=== PATIENT | female | born 1990 | race Caucasian/White ===

== ENCOUNTER 2016-11-02 12:29 | Emergency (ER) | payer SELFPAY ==
[~2016-11-02] VITALS: Ht 152.4 cm; Wt 50.0 kg
[~2016-11-02 12:29] MED LIST: ACET500C5 PO; AMO500 PO; CEPH-443 PO; D-ME118S6 PO; IBUP400T22 PO; IBUP800T25 PO; MECL25TA2 PO; ONDA4TAB8 PO; POLY10DR19 LEFT EYE; PRENAT PO
[2016-11-02 12:33] VITALS: Ht 152.4 cm; Wt 50.0 kg
[2016-11-02 15:35] LABS: ADD SCAN DIFF NO
[2016-11-02 15:41] LABS: BASOPHILS % 0.6 % (0.0-2.0); EOSINOPHILS % 0.6 % (0.0-7.0); HEMOGLOBIN 12.8 g/dl (12.0-16.0); LYMPHOCYTES # 1.8 10^3/ul (0.8-2.9); LYMPHOCYTES % 33.9 % (15.0-51.0); MEAN CORPUSCULAR HEMOGLOBIN 30.8 pg (29.0-33.0); MEAN CORPUSCULAR HGB CONC 32.8 g/dl (32.0-37.0); MEAN CORPUSCULAR VOLUME 93.8 fl (82.0-101.0); MEAN PLATELET VOLUME 10.2 fl (7.4-10.4); MONOCYTE # 0.4 10^3/ul (0.3-0.9); MONOCYTES % 7.9 % (0.0-11.0); NEUTROPHIL # 2.9 10^3/ul (1.6-7.5); NEUTROPHILS % 56.8 % (39.0-77.0); PLATELET COUNT 304 10^3/UL (140-415); RED BLOOD COUNT 4.16 10^6/ul (4.20-5.40); RED CELL DISTRIBUTION WIDTH 13.9 % (11.5-14.5); WHITE BLOOD COUNT 5.2 10^3/ul (4.8-10.8)
[2016-11-02 15:53] LABS: ADD UMIC YES; URINE BILIRUBIN (Dip) NEGATIVE (NEGATIVE); URINE BLOOD (Dip) NEGATIVE (NEGATIVE); URINE COLOR LT. YELLOW (YELLOW); URINE GLUCOSE (Dip) NEGATIVE (NEGATIVE); URINE KETONES (Dip) NEGATIVE (NEGATIVE); URINE LEUKOCYTE ESTERASE (Dip) TRACE (NEGATIVE); URINE NITRITE (Dip) NEGATIVE (NEGATIVE); URINE TOTAL PROTEIN (Dip) NEGATIVE (NEGATIVE); URINE UROBILINOGEN (Dip) 0.2 E.U./dL (0.1-1.0)
[2016-11-02 16:04] LABS: BACTERIA,URINE FEW; SQUAMOUS EPITHELIAL CELL,UR MODERATE; URINE RBCS NONE SEEN /HPF (0)
--- NOTE | 2016-11-02 16:09 | RADRPT ---
PROCEDURE: OBSTETRICAL ULTRASOUND WITH ENDOVAGINAL IMAGES CLINICAL INDICATION: Vaginal Bleed (), pelvic pain TECHNIQUE: Multiple sonographic images of the pelvis were obtained utilizing a transabdominal and endovaginal technique. The images were reviewed on a PACS workstation. COMPARISON: None. LMP: 10/03/2016 Gestational age by LMP: 4 weeks, 2 days FINDINGS: The uterus measures 8.7 x 4.5 x 4.7 cm. There is thickening of the endometrium to 16 mm without libertad dence of an intrauterine . The right ovary measures 4.1 x 2.7 x 3.4 cm. The left ovary measures 3.2 x 2.5 x 3.3 cm. There is no rmal vascular flow in both ovaries. There is a complex cystic lesion with thick grover and heterogeneous internal echoes as well as mild peripheral vascular flow in the left ovary measuring up to 1.8 cm. There is a 3.5 cm simple cystic lesion in the right ovary. There is trace pelvic free fluid. IMPRESSION: Thickening of the endometrium to 16 mm without evidence of an intrauterine . Findings ma y be due to an early intrauterine although an ectopic cannot be entirely exclude d. Short-term follow-up ultrasound and serial Beta HCG measurements are recommended for further kay luation. 1.8 cm complex cystic lesion in the left ovary is likely a hemorrhagic or corpus luteal cyst. 3.5 cm simple cystic lesion in the right ovary is nonspecific and may be an enlarged follicle. RPTAT: EE Physician Carole Date Time Electronically viewed and signed by Oscar Gaines Physician on 11/02/2016 16:08 LOBO
--- NOTE | 2016-11-02 17:12 | ERD ---
ER Documentation Chief Complaint Date/Time DATE: 11/02/16 TIME: 17:06 Chief Complaint WITH PELVIC PAIN HPI This is a 26-year-old female presents to the ER with pelvic pain that started yesterday. Patient states that she is currently and does not know how far along she is. Patient went to [facility] and they did not tell her how many weeks she was. Patient denies any vaginal bleeding. Pain is intermittent and sharp in nature it is nonradiating. A2. Patient denies any urinary frequency or dysuria. She is taking her vitamins. ROS 12 point review of systems was done, all negative except per HPI.. Medications Home Meds Active Scripts Amoxicillin* (Amoxicillin*) 500 Mg Cap, 500 MG PO TID for 10 Days, CAP Prov:BOGDAN YOUNG MD 03/20/16 Dextromethorphan Hb-Promethazine Hcl (Promethazine DM Syrup) 180 Ml Syrup, 5 ML PO Q6H Y for COUGH, #4 OZ Prov:BOGDAN YOUNG MD 03/20/16 Ibuprofen* (Motrin*) 400 Mg Tab, 400 MG PO Q6, #14 TAB Prov:BOGDAN YOUNG MD 03/20/16 Cephalexin* (Keflex*) 500 Mg Capsule, 500 MG PO QID for 7 Days, CAP Prov:SAGE OWEN-Mamie 01/29/16 Meclizine Hcl* (Antivert*) 25 Mg Tablet, 25 MG PO Q6H Y for DIZZINESS, #20 TAB Prov:SAGE OWEN-Mamie 01/29/16 Ondansetron Hcl* (Zofran*) 4 Mg Tablet, 4 MG PO Q6H for NAUSEA AND/OR VOMITING, #30 TAB Prov:PROSAGE IGLESIAS-C 01/29/16 Polymyxin B Sulfate-TMP* (Polymyxin B-TMP Eye Drops*) 10 Ml Drops, 1 DROP LEFT EYE QID for 7 Days, EA Prov:JENNIFFER STODDARD NP 05/10/15 Acetaminophen* (Tylophen*) 500 Mg Capsule, 2 CAP PO Q8H Y for PAIN AND OR ELEVATED TEMP, #20 CAP Prov:SAMUEL DOMINGUEZ MD 9/12/15 Ibuprofen* (Motrin*) 800 Mg Tab, 800 MG PO Q6H Y for PAIN AND OR ELEVATED TEMP, #30 TAB Prov:SAMUEL DOMINGUEZ MD 05/07/15 Reported Medications Multivit/Min/Fol Ac/Iron/Pren* ( S*) 1 Tab Tab, 1 TAB PO DAILY, TAB 03/08/14 Allergies Allergies: Coded Allergies: No Known Allergy (Unverified , 03/20/16) PMhx/Soc Medical and Surgical Hx: pt denies Medical Hx, pt denies Surgical Hx History of Surgery: No Anesthesia Reaction: No Hx Neurological Disorder: No Hx Respiratory Disorders: No Hx Cardiac Disorders: No Hx Psychiatric Problems: No Hx Miscellaneous Medical Probl: No Hx Alcohol Use: No Hx Substance Use: No Hx Tobacco Use: No Smoking Status: Never smoker Physical Exam Vitals Vital Signs Date Time Temp Pulse Resp B/P Pulse Ox O2 Delivery O2 Flow Rate FiO2 11/02/16 12:33 98.1 71 20 117/71 99 Physical Exam GENERAL: The patient is well developed and appropriate for usual state of health , in no apparent distress. HEENT: Atraumatic CHEST: Clear to auscultation bilaterally. There are no rales, wheezes or rhonchi. HEART: Regular rate and rhythm. No murmurs, clicks, rubs or gallops. ABDOMEN: Soft, nontender and nondistended. Good bowel sounds. No rebound or guarding. No gross peritonitis. No gross organomegaly or masses. No Parra sign or McBurney point tenderness. BACK: No midline or flank tenderness. NEURO: Alert and oriented. SKIN: The skin is warm and dry. Result Diagram: 11/02/16 1530 Results 24 hrs Laboratory Tests Test 11/02/16 15:30 11/02/16 15:40 Basophils # 0.010^3/ul Basophils % 0.6% Beta HCG, Quantitative 916.2mIU/ml Eosinophils # 0.010^3/ul Eosinophils % 0.6% Hematocrit 39.0% Hemoglobin 12.8g/dl Lymphocytes # 1.810^3/ul Lymphocytes % 33.9% Mean Corpuscular Hemoglobin 30.8pg Mean Corpuscular Hemoglobin Concent 32.8g/dl Mean Corpuscular Volume 93.8fl Mean Platelet Volume 10.2fl Monocytes # 0.410^3/ul Monocytes % 7.9% Neutrophils # 2.910^3/ul Neutrophils % 56.8% Nucleated Red Blood Cells # 0.010^3/ul Nucleated Red Blood Cells % 0.0/100WBC Platelet Count 93463^3/UL Red Blood Count 4.1610^6/ul Red Cell Distribution Width 13.9% White Blood Count 5.210^3/ul Urine Bacteria FEW Urine Bilirubin NEGATIVE Urine Clarity CLEAR Urine Color LT. YELLOW Urine Glucose NEGATIVE% Urine Hemoglobin NEGATIVE Urine Ketones NEGATIVE Urine Leukocyte Esterase TRACE Urine Microscopic RBC NONE SEEN/HPF Urine Microscopic WBC 2-5/HPF Urine Nitrite NEGATIVE Urine Specific [place] 1.010 Urine Squamous Epithelial Cells MODERATE Urine Total Protein NEGATIVE Urine Urobilinogen 0.2 E.U./dL Urine pH 5.5 Procedures/MDM Differential diagnosis: Threatened , missed , incomplete , ectopic , molar , UTI, pyelonephritis. At this time patient's quantitative hCG is 915 and there is no evidence of intrauterine on ultrasound. This could be because patient's is too early , or an ectopic . Considering patient's hCG is below 1500 suspicion is lower. Patient however need to return to ER in 48 hours for recheck or sooner if pain worsens or continues. I shared my medical decision making with the patient she understands and agrees with plan. She understands and agrees with plan. Departure Diagnosis: Primary Impression: Pelvic pain during Condition: Stable Patient Instructions: Pelvic Pain, Unknown Cause Referrals: QIAN HARRISON Additional Instructions: Call your primary care doctor TOMORROW for an appointment during the next 1-2 days.See the doctor sooner or return here if your condition worsens before your appointment time. ANABELL GUIDO Nov 02, 2016 17:11
== END 2016-11-02 17:08 | disposition home or self-care (01) ==
LOC: FTE 12:29
DX: O26.891 Other specified pregnancy related conditions, first trimester (principal); R10.2 Pelvic and perineal pain; Z3A.01 Less than 8 weeks gestation of pregnancy
CPT/HCPCS: 76801; 76817; 81001; 81003; 84702; 85025; 86900; 86901

== ENCOUNTER 2016-11-04 16:58 | Emergency (ER) | payer SELFPAY ==
[~2016-11-04] VITALS: Wt 51.5 kg
--- NOTE | 2016-11-04 18:35 | RADRPT ---
PROCEDURE: US Pelvis CLINICAL INDICATION: Pelvic pain. TECHNIQUE: Transabdominal and transvaginal sonographic evaluation of the pelvis was performed. COMPARISON: 11/02/2016. FINDINGS: Myometrium is homogeneous in echotexture without fibroids. There is an intrauterine gestational sac measuring 0.3 cm corresponding to a gestational age of 4 we eks 6 days. There is no pole, yolk sac, or cardiac activity. Normal flow to both ovaries. No adnexal mass. There is a simple 3 cm cyst . A corpus luteal cyst within the left ovary is demonstrated. Small free pelvic fluid. MEASUREMENTS: Uterus: 7.7 x 4.8 x 5.2 cm, anteverted Endometrium: 1.7 cm Right ovary size: 3.6 x 3.4 cm Left ovary size: 2.5 x 2.2 cm IMPRESSION: Intrauterine gestational sac of indeterminate viability. The mean gestational sac diameter correspo nds to a gestational age of approximately 4 weeks 6 days. There is no pole, yolk sac, or card iac activity. Recommend correlation with serial serum maternal beta HCG levels and interval sonogra phic follow-up to confirm viability. Simple 3 cm ovarian cyst. Corpus luteal cyst within the left ovary. RPTAT: EE .Camden Venegas MD, MD Date Time Electronically viewed and signed by .Camden Venegas MD, on 11/04/2016 18:35 .C/
--- NOTE | 2016-11-04 19:07 | ERD ---
ER Documentation Chief Complaint Date/Time DATE: 11/04/16 TIME: 19:04 Chief Complaint PT HERE FOR FOLLOW-UP FOR , DENIES PAIN/VB HPI This is a 26-year-old who is here for recheck. The patient was here for pelvic pain for 2 days ago and had a hCG in the 900s with a normal empty uterus. She says her pain is now gone and she never had any bleeding She was told to return to us make sure that sac showed up in her uterus today. She is a symptom ROS All systems reviewed and are negative except as per history of present illness. Medications Home Meds Active Scripts Amoxicillin* (Amoxicillin*) 500 Mg Cap, 500 MG PO TID for 10 Days, CAP Prov:BOGDAN YOUNG MD 03/20/16 Dextromethorphan Hb-Promethazine Hcl (Promethazine DM Syrup) 180 Ml Syrup, 5 ML PO Q6H Y for COUGH, #4 OZ Prov:BOGDAN YOUNG MD 03/20/16 Ibuprofen* (Motrin*) 400 Mg Tab, 400 MG PO Q6, #14 TAB Prov:BOGDAN YOUNG MD 03/20/16 Cephalexin* (Keflex*) 500 Mg Capsule, 500 MG PO QID for 7 Days, CAP Prov:SAGE OWEN PA-C 01/29/16 Meclizine Hcl* (Antivert*) 25 Mg Tablet, 25 MG PO Q6H Y for DIZZINESS, #20 TAB Prov:PROSAGE IGLESIAS-C 01/29/16 Ondansetron Hcl* (Zofran*) 4 Mg Tablet, 4 MG PO Q6H for NAUSEA AND/OR VOMITING, #30 TAB Prov:SAGE OWEN-C 01/29/16 Polymyxin B Sulfate-TMP* (Polymyxin B-TMP Eye Drops*) 10 Ml Drops, 1 DROP LEFT EYE QID for 7 Days, EA Prov:JENNIFFER STODDARD NP 05/10/15 Acetaminophen* (Tylophen*) 500 Mg Capsule, 2 CAP PO Q8H Y for PAIN AND OR ELEVATED TEMP, #20 CAP Prov:SAMUEL DOMINGUEZ MD 05/07/15 Ibuprofen* (Motrin*) 800 Mg Tab, 800 MG PO Q6H Y for PAIN AND OR ELEVATED TEMP, #30 TAB Prov:SAMUEL DOMINGUEZ MD 05/07/15 Reported Medications Multivit/Min/Fol Ac/Iron/Pren* ( S*) 1 Tab Tab, 1 TAB PO DAILY, TAB 03/08/14 Allergies Allergies: Coded Allergies: No Known Allergy (Unverified , 03/20/16) PMhx/Soc Medical and Surgical Hx: pt denies Medical Hx, pt denies Surgical Hx History of Surgery: No Anesthesia Reaction: No Hx Neurological Disorder: No Hx Respiratory Disorders: No Hx Cardiac Disorders: No Hx Psychiatric Problems: No Hx Miscellaneous Medical Probl: No Hx Alcohol Use: No Hx Substance Use: No Hx Tobacco Use: No Smoking Status: Never smoker FmHx Family History: No coronary disease Physical Exam Vitals Vital Signs Date Time Temp Pulse Resp B/P Pulse Ox O2 Delivery O2 Flow Rate FiO2 11/04/16 17:04 99.3 96 17 120/76 97 Physical Exam Const: Well-developed, well-nourished Head: Atraumatic, normocephalic Eyes: Normal Conjunctiva, PERRLA, EOMI, normal sclera, no nystagmus ENT: Normal External Ears, Nose and Mouth, moist mucus membranes. Neck: Full range of motion. No meningismus, no lymphadenopathy. Resp: Clear to auscultation bilaterally, no wheezing, rhonchi, rales Cardio: Regular rate and rhythm, no murmurs, S1 S2 present Abd: Soft, non tender x 4, non distended. Normal bowel sounds, no guarding or rebound, no pulsitile abdominal masses or bruits Skin: No petechiae or rashes, no ecchymosis , no maculopapular rash Back: No midline or flank tenderness Ext: No cyanosis, or edema, FROM x 4, normal inspection, neurovascularly intact x 4 Neur: Awake and alert, STR 5/5 x 4, sensation intact x 4, no focal findings, cerebellum intact Psych: Normal Mood and Affect Results 24 hrs Laboratory Tests Test 11/04/16 17:45 Beta HCG, Quantitative 1794.3mIU/ml Procedures/MDM PROCEDURE: US Pelvis CLINICAL INDICATION: Pelvic pain. TECHNIQUE: Transabdominal and transvaginal sonographic evaluation of the pelvis was performed. COMPARISON: 11/02/2016. FINDINGS: Myometrium is homogeneous in echotexture without fibroids. There is an intrauterine gestational sac measuring 0.3 cm corresponding to a gestational age of 4 weeks 6 days. There is no pole, yolk sac, or cardiac activity. Normal flow to both ovaries. No adnexal mass. There is a simple 3 cm cyst . A corpus luteal cyst within the left ovary is demonstrated. Small free pelvic fluid. MEASUREMENTS: Uterus: 7.7 x 4.8 x 5.2 cm, anteverted Endometrium: 1.7 cm Right ovary size: 3.6 x 3.4 cm Left ovary size: 2.5 x 2.2 cm IMPRESSION: Intrauterine gestational sac of indeterminate viability. The mean gestational sac diameter corresponds to a gestational age of approximately 4 weeks 6 days. There is no pole, yolk sac, or cardiac activity. Recommend correlation with serial serum maternal beta HCG levels and interval sonographic follow-up to confirm viability. Simple 3 cm ovarian cyst. Corpus luteal cyst within the left ovary. RPTAT: EE .Camden Venegas MD, MD Date Time Electronically viewed and signed by .Camden Venegas MD, MD on 11/04/2016 18:35 .C/ CC: ALESSANDRA EWING DO Patient also has gestational sac and hCG is rising according to a normal at this time Departure Diagnosis: Primary Impression: Weeks of gestation: less than 8 weeks Qualified Code: Z3A.01 - Less than 8 weeks gestation of Condition: Stable Patient Instructions: , New Dx Additional Instructions: hcg 1794 ALESSANDRA EWING DO Nov 04, 2016 19:07
== END 2016-11-04 19:14 | disposition home or self-care (01) ==
LOC: FTE 16:58
DX: O26.891 Other specified pregnancy related conditions, first trimester (principal); R10.2 Pelvic and perineal pain; Z3A.01 Less than 8 weeks gestation of pregnancy
CPT/HCPCS: 76801; 76817; 84702

== ENCOUNTER 2016-12-08 12:28 | Emergency (ER) | payer SELFPAY ==
[~2016-12-08] VITALS: Ht 160 cm; Wt 51.0 kg
[2016-12-08 12:33] VITALS: Ht 160 cm; Wt 51.0 kg
[2016-12-08] MEDS ORDERED: ACET325T33 PO (12:56)
--- NOTE | 2016-12-08 13:00 | ERA ---
ER Documentation Chief Complaint Date/Time DATE: 12/08/16 TIME: 12:57 Chief Complaint migraine huitron, dizziness; no n/v; 8wks preg-cramping x 3 days HPI This is a 26-year-old female who is 8 weeks and is complaining of a headache. Patient describes the headache as throbbing behind both eyes and mostly in the forehead. Patient explains as a "bandlike" pressure around the entire head. Pt denies weight loss, fevers, nausea, vomiting, diarrhea, constipation, hyperhidrosis, rigors, fatigue, or dyspnea, malaise. Patient denies bleeding, discharge, hematuria or dysuria. Denies thunderclap headache, worst headache of life, difficulty with vision or hearing. ROS All systems reviewed and are negative except as per history of present illness. Medications Home Meds Active Scripts Acetaminophen* (Tylenol*) 325 Mg Tablet, 1 TAB PO Q8 Y for PAIN AND OR ELEVATED TEMP, #20 TAB Prov:VILMA YI PA-C 12/08/16 Amoxicillin* (Amoxicillin*) 500 Mg Cap, 500 MG PO TID for 10 Days, CAP Prov:BOGDAN YOUNG MD 03/20/16 Dextromethorphan Hb-Promethazine Hcl (Promethazine DM Syrup) 180 Ml Syrup, 5 ML PO Q6H Y for COUGH, #4 OZ Prov:BOGDAN YOUNG MD 03/20/16 Ibuprofen* (Motrin*) 400 Mg Tab, 400 MG PO Q6, #14 TAB Prov:BOGDAN YOUNG MD 03/20/16 Cephalexin* (Keflex*) 500 Mg Capsule, 500 MG PO QID for 7 Days, CAP Prov:SAGE OWEN PA-C 01/29/16 Meclizine Hcl* (Antivert*) 25 Mg Tablet, 25 MG PO Q6H Y for DIZZINESS, #20 TAB Prov:SAGE OWEN PA-C 01/29/16 Ondansetron Hcl* (Zofran*) 4 Mg Tablet, 4 MG PO Q6H for NAUSEA AND/OR VOMITING, #30 TAB Prov:SAGE OWEN PA-C 01/29/16 Polymyxin B Sulfate-TMP* (Polymyxin B-TMP Eye Drops*) 10 Ml Drops, 1 DROP LEFT EYE QID for 7 Days, EA Prov:JENNIFFER STODDARD NP 05/10/15 Acetaminophen* (Tylophen*) 500 Mg Capsule, 2 CAP PO Q8H Y for PAIN AND OR ELEVATED TEMP, #20 CAP Prov:SAMUEL DOMINGUEZ MD 05/07/15 Ibuprofen* (Motrin*) 800 Mg Tab, 800 MG PO Q6H Y for PAIN AND OR ELEVATED TEMP, #30 TAB Prov:SAMUEL DOMINGUEZ MD 05/07/15 Reported Medications Multivit/Min/Fol Ac/Iron/Pren* ( S*) 1 Tab Tab, 1 TAB PO DAILY, TAB 03/08/14 Allergies Allergies: Coded Allergies: No Known Allergy (Unverified , 03/20/16) PMhx/Soc History of Surgery: No Anesthesia Reaction: No Hx Neurological Disorder: No Hx Respiratory Disorders: No Hx Cardiac Disorders: No Hx Psychiatric Problems: No Hx Miscellaneous Medical Probl: No Hx Alcohol Use: No Hx Substance Use: No Hx Tobacco Use: No Physical Exam Vitals Vital Signs Date Time Temp Pulse Resp B/P Pulse Ox O2 Delivery O2 Flow Rate FiO2 12/08/16 12:33 97.9 94 18 124/68 98 Physical Exam Const: Well-appearing 26-year-old female who is 8 weeks . Head: Atraumatic Eyes: Normal Conjunctiva ENT: Normal External Ears, Nose and Mouth. Neck: Full range of motion..~ No meningismus. Resp: Clear to auscultation bilaterally Cardio: Regular rate and rhythm, no murmurs Abd: Soft, non tender, non distended. Normal bowel sounds. No abdominal pain. Skin: No petechiae or rashes Back: No midline or flank tenderness Ext: No cyanosis, or edema Neur: Awake and alert Psych: Normal Mood and Affect BLOW OFF WORKER exam deferred. I told the patient to follow-up with DREDGEM[facility] in the next 1-3 days. Results 24 hrs Laboratory Tests Test 12/08/16 13:03 Bedside Urine pH (LAB) 7.0 Bedside Urine Protein (LAB) Negative Bedside Urine Glucose (UA) Negative Bedside Urine Ketones (LAB) Negative Bedside Urine Blood Negative Bedside Urine Nitrite (LAB) Negative Bedside Urine Leukocyte Esterase (L 1+ Current Medications Medications (Trade) Dose Ordered Sig/Marino Route PRN Reason Start Time Stop Time Status Last Admin Dose Admin Acetaminophen (Tylenol Tab) 325 mg ONCE ONCE PO 12/08/16 14:00 12/08/16 14:00 DC 12/08/16 13:36 Procedures/MDM BLOW OFF WORKER exam deferred to have advised patient to follow-up with DREDGEMASTER in 1-3 days. Went ahead and got a urine on the patient to rule out any infectious pathology of the urinary tract. The urine was unremarkable. The physical exam was also unremarkable. At this time I do not suspect any endangerment of the fetus as there is no bleeding or pain. Patient has no other complaints besides the tension type headache described in the HPI. We will go ahead and discharge the patient with Tylenol for discomfort. Have recommended the patient follow-up with her DREDGEMASTER in the next 1-3 days for a further evaluation/recommendation for headache control. Have told the patient if the headache worsens or changes return to the emergency department immediately. Departure Diagnosis: Primary Impression: Tension type headache Qualified Code: G44.201 - Acute intractable tension-type headache Condition: Stable Patient Instructions: Headache, Tension Additional Instructions: Follow up with your PCP within the next 1-3 days for a more thorough evaluation and a possible referral to a specialist. Return the the emergency department immediately if symptoms worsen or change. If you have any questions regarding medications, ask your pharmacist or us before you leave. If any adverse reactions occur while taking your medications, discontinue the treatment and return to the emergency department immediately. Take your medications as directed, and complete the entire course of treatment. VILMA YI PA-C Dec 08, 2016 13:00
[2016-12-08 13:03] LABS: URINE BLOOD (Dip) POC Negative (NEGATIVE)
[2016-12-08] MEDS ORDERED: ACETAMINOPHEN 325 MG TAB PO ONE (14:00)
== END 2016-12-08 13:45 | disposition home or self-care (01) ==
LOC: FTE 12:28
DX: O99.351 Diseases of the nervous system complicating pregnancy, first trimester (principal); G44.201 Tension-type headache, unspecified, intractable; Z3A.08 8 weeks gestation of pregnancy
CPT/HCPCS: 81003; 99283

== ENCOUNTER 2016-12-10 11:32 | Emergency (ER) | payer SELFPAY ==
[~2016-12-10] VITALS: Ht 157.5 cm; Wt 50.0 kg
[~2016-12-10 11:32] MED LIST changes: +ACET325T33 PO
[2016-12-10 11:38] VITALS: Ht 157.5 cm; Wt 50.0 kg
[2016-12-10] MEDS ORDERED: ACETAMINOPHEN 325 MG TAB PO STA (12:44)
[2016-12-10 12:58] LABS: ADD SCAN DIFF NO
[2016-12-10 13:01] LABS: BASOPHILS % 0.3 % (0.0-2.0); EOSINOPHILS % 0.3 % (0.0-7.0); HEMATOCRIT 37.3 % (37.0-47.0); HEMOGLOBIN 12.2 g/dl (12.0-16.0); LYMPHOCYTES # 1.5 10^3/ul (0.8-2.9); LYMPHOCYTES % 15.7 % (15.0-51.0); MEAN CORPUSCULAR HEMOGLOBIN 30.1 pg (29.0-33.0); MEAN CORPUSCULAR HGB CONC 32.7 g/dl (32.0-37.0); MEAN CORPUSCULAR VOLUME 92.1 fl (82.0-101.0); MEAN PLATELET VOLUME 10.4 fl (7.4-10.4); MONOCYTE # 0.5 10^3/ul (0.3-0.9); MONOCYTES % 5.5 % (0.0-11.0); NEUTROPHIL # 7.6 10^3/ul (1.6-7.5); NEUTROPHILS % 77.9 % (39.0-77.0); PLATELET COUNT 301 10^3/UL (140-415); RED BLOOD COUNT 4.05 10^6/ul (4.20-5.40); RED CELL DISTRIBUTION WIDTH 12.9 % (11.5-14.5); WHITE BLOOD COUNT 9.8 10^3/ul (4.8-10.8)
[2016-12-10 13:12] LABS: ADD UMIC YES; URINE BILIRUBIN (Dip) NEGATIVE (NEGATIVE); URINE BLOOD (Dip) 2+ (NEGATIVE); URINE COLOR LT. YELLOW (YELLOW); URINE GLUCOSE (Dip) NEGATIVE (NEGATIVE); URINE KETONES (Dip) TRACE (NEGATIVE); URINE LEUKOCYTE ESTERASE (Dip) 2+ (NEGATIVE); URINE NITRITE (Dip) NEGATIVE (NEGATIVE); URINE TOTAL PROTEIN (Dip) TRACE (NEGATIVE); URINE UROBILINOGEN (Dip) 0.2 E.U./dL (0.1-1.0)
[2016-12-10 13:25] LABS: BACTERIA,URINE FEW; SQUAMOUS EPITHELIAL CELL,UR FEW
--- NOTE | 2016-12-10 13:47 | RADRPT ---
PROCEDURE: US OB. CLINICAL INDICATION: Vaginal bleeding TECHNIQUE: Transabdominal and transvaginal views of the pelvis are available for review. COMPARISON: 11/04/2016 FINDINGS: There is a single intrauterine gestation with the crown-rump length measuring 3.0 cm, corresponding to a gestational age of 9 weeks and 6 days. The heart rate is noted at 179 bpm. The right ovary was not visualized. The left ovary measures 3.0 x 1.7 x 2.3 cm. There is a corpus luteum cyst in the left ovary. There is no free fluid. RPTAT: AA IMPRESSION: Single live intrauterine with an estimated gestational age of 9 weeks and 6 days, based on ultrasound measurements. TREASURE based on ultrasound measurements is 07/09/17. .Delgado Cagle MD, Date Time Electronically viewed and signed by .Delgado Cagle MD, on 12/10/2016 13:47 .S/
[2016-12-10] MEDS ORDERED: NITR-58 PO (14:16)
--- NOTE | 2016-12-10 14:42 | ERD ---
ER Documentation Chief Complaint Date/Time DATE: 12/10/16 TIME: 14:38 Chief Complaint 8 WEEKS PREGNAT WITH SPOTTING HPI This is a 26-year-old female presents to the ER for vaginal spotting that started today. Patient states she is currently 8 weeks . She does admit to cough and cold symptoms with stuffy nose. Patient also has a headache. She also admits to urinary frequency and dysuria. Patient denies any vaginal discharge. She does admit to some mild suprapubic pain. A2. ROS 12 point review of systems was done, all negative except per HPI. Medications Home Meds Active Scripts Nitrofurantoin Monohyd Macrocr* (Macrobid*) 100 Mg Capsr, 100 MG PO BID for 7 Days, CAP Prov:ANABELL GUIDO 12/10/16 Acetaminophen* (Tylenol*) 325 Mg Tablet, 1 TAB PO Q8 Y for PAIN AND OR ELEVATED TEMP, #20 TAB Prov:VILMA YI PA-C 12/08/16 Amoxicillin* (Amoxicillin*) 500 Mg Cap, 500 MG PO TID for 10 Days, CAP Prov:BOGDAN YOUNG MD 03/20/16 Dextromethorphan Hb-Promethazine Hcl (Promethazine DM Syrup) 180 Ml Syrup, 5 ML PO Q6H Y for COUGH, #4 OZ Prov:BOGDAN YOUNG MD 03/20/16 Ibuprofen* (Motrin*) 400 Mg Tab, 400 MG PO Q6, #14 TAB Prov:BOGDAN YOUNG MD 03/20/16 Cephalexin* (Keflex*) 500 Mg Capsule, 500 MG PO QID for 7 Days, CAP Prov:SAGE OWEN PA-C 01/29/16 Meclizine Hcl* (Antivert*) 25 Mg Tablet, 25 MG PO Q6H Y for DIZZINESS, #20 TAB Prov:SAGE OWEN PA-C 01/29/16 Ondansetron Hcl* (Zofran*) 4 Mg Tablet, 4 MG PO Q6H for NAUSEA AND/OR VOMITING, #30 TAB Prov:SAGE OWEN PA-C 01/29/16 Polymyxin B Sulfate-TMP* (Polymyxin B-TMP Eye Drops*) 10 Ml Drops, 1 DROP LEFT EYE QID for 7 Days, EA Prov:JENNIFFER STODDARD EDWARD MonieMorena ORO 05/10/15 Acetaminophen* (Tylophen*) 500 Mg Capsule, 2 CAP PO Q8H Y for PAIN AND OR ELEVATED TEMP, #20 CAP Prov:SAMUEL DOMINGUEZ MD 05/07/15 Ibuprofen* (Motrin*) 800 Mg Tab, 800 MG PO Q6H Y for PAIN AND OR ELEVATED TEMP, #30 TAB Prov:SAMUEL DOMINGUEZ MD 05/07/15 Reported Medications Multivit/Min/Fol Ac/Iron/Pren* ( S*) 1 Tab Tab, 1 TAB PO DAILY, TAB 03/08/14 Allergies Allergies: Coded Allergies: No Known Allergy (Unverified , 12/10/16) PMhx/Soc Medical and Surgical Hx: pt denies Medical Hx, pt denies Surgical Hx History of Surgery: No Anesthesia Reaction: No Hx Neurological Disorder: No Hx Respiratory Disorders: No Hx Cardiac Disorders: No Hx Psychiatric Problems: No Hx Miscellaneous Medical Probl: No Hx Alcohol Use: No Hx Substance Use: No Hx Tobacco Use: No Smoking Status: Never smoker Physical Exam Vitals Vital Signs Date Time Temp Pulse Resp B/P Pulse Ox O2 Delivery O2 Flow Rate FiO2 12/10/16 11:38 98.5 76 20 121/76 99 Physical Exam GENERAL: The patient is well developed and appropriate for usual state of health , in no apparent distress. HEENT: Atraumatic. . CHEST: Clear to auscultation bilaterally. There are no rales, wheezes or rhonchi. HEART: Regular rate and rhythm. No murmurs, clicks, rubs or gallops. ABDOMEN: Soft, nontender and nondistended. Good bowel sounds. No rebound or guarding. No gross peritonitis. No gross organomegaly or masses. No Parra sign or McBurney point tenderness. BACK: No midline or flank tenderness. NEURO: Alert and oriented. SKIN: There is no apparent rash or petechia. The skin is warm and dry. Result Diagram: 12/10/16 1252 Results 24 hrs Laboratory Tests Test 12/10/16 12:52 12/10/16 12:55 White Blood Count 9.810^3/ul Red Blood Count 4.0510^6/ul Hemoglobin 12.2g/dl Hematocrit 37.3% Mean Corpuscular Volume 92.1fl Mean Corpuscular Hemoglobin 30.1pg Mean Corpuscular Hemoglobin Concent 32.7g/dl Red Cell Distribution Width 12.9% Platelet Count 46500^3/UL Mean Platelet Volume 10.4fl Neutrophils % 77.9% Lymphocytes % 15.7% Monocytes % 5.5% Eosinophils % 0.3% Basophils % 0.3% Nucleated Red Blood Cells % 0.0/100WBC Neutrophils # 7.610^3/ul Lymphocytes # 1.510^3/ul Monocytes # 0.510^3/ul Eosinophils # 0.010^3/ul Basophils # 0.010^3/ul Nucleated Red Blood Cells # 0.010^3/ul Beta HCG, Quantitative 468432.0mIU/ml Urine Color LT. YELLOW Urine Clarity SLIGHTLY CLOUDY Urine pH 6.0 Urine Specific Robinson 1.020 Urine Ketones TRACE Urine Nitrite NEGATIVE Urine Bilirubin NEGATIVE Urine Urobilinogen 0.2 E.U./dL Urine Leukocyte Esterase 2+ Urine Microscopic RBC 10-25/HPF Urine Microscopic WBC >50/HPF Urine Squamous Epithelial Cells FEW Urine Bacteria FEW Urine Hemoglobin 2+ Urine Glucose NEGATIVE% Urine Total Protein TRACE Current Medications Medications (Trade) Dose Ordered Sig/Marino Route PRN Reason Start Time Stop Time Status Last Admin Dose Admin Acetaminophen (Tylenol Tab) 650 mg ONCE STAT PO 12/10/16 12:44 12/10/16 12:45 DC 12/10/16 13:00 Procedures/MDM Differential diagnosis: Threatened , missed , incomplete , ectopic , molar , UTI, pyelonephritis. This time patient's appears to be normal. Her quantitative hCG is within normal limits and her ultrasound is normal. Patient is Rh+ and does not need Rhogam. Even though everything is normal, threatened is not completely ruled out as patient is bleeding vaginally. Patient does have a UTI. She will be sent home with Macrobid. Patient really needs to follow-up within 48 hours with OB. I shared my medical decision making with the patient she understands and agrees with plan. Patient is to return to ER sooner if symptoms worsen. Departure Diagnosis: Primary Impression: UTI (urinary tract infection) Condition: Stable Patient Instructions: Understanding Urinary Tract Infections (UTIs) Additional Instructions: Call your primary care doctor TOMORROW for an appointment during the next 1-2 days.See the doctor sooner or return here if your condition worsens before your appointment time. ANABELL GUIDO Dec 10, 2016 14:42
[2016-12-10 15:19] VITALS: BP 127/73; PULSE 81; RESP 17; TEMP 98.5
== END 2016-12-10 15:21 | disposition home or self-care (01) ==
LOC: FTE 11:32
DX: O23.41 Unspecified infection of urinary tract in pregnancy, first trimester (principal); Z3A.09 9 weeks gestation of pregnancy
CPT/HCPCS: 76801; 81001; 81003; 84702; 85025; 86900; 86901

== ENCOUNTER 2017-01-21 16:18 | Emergency (ER) | payer MEDICAID ==
[~2017-01-21] VITALS: Ht 152.4 cm; Wt 50.0 kg
[~2017-01-21 16:18] MED LIST changes: +NITR-58 PO
[2017-01-21 16:21] VITALS: Ht 152.4 cm; Wt 50.0 kg
[2017-01-21] MEDS ORDERED: ACET500C5 PO (16:52)
--- NOTE | 2017-01-21 16:58 | ERD ---
ER Documentation Chief Complaint Date/Time DATE: 01/21/17 TIME: 16:54 Chief Complaint Patient complains of back pain after a fall yesterday HPI Patient is a 26-year-old female, , approximately 16 weeks , who presents to the emergency department with lower back pain status post ground-level fall. Patient reports a trip and fall injury. Patient denies any dizziness or presyncopal feelings prior to fall. Patient states the pain is localized to her left lower back. Patient does report some radiation of pain down her left leg. Patient denies any saddle anesthesia, urinary incontinence, stool incontinence, fever, chills or night pain. Patient denies taking any medication. Patient denies any dysuria, frequency, urgency, or hematuria. Patient denies any previous spinal fractures. She is able to evaluate without any difficulty. ROS All systems reviewed and are negative except as per history of present illness. Medications Home Meds Active Scripts Acetaminophen* (Tylophen*) 500 Mg Capsule, 1 CAP PO Q6H Y for PAIN AND OR ELEVATED TEMP, #20 CAP Prov:SHERIF GAY PA-C 01/21/17 Nitrofurantoin Monohyd Macrocr* (Macrobid*) 100 Mg Capsr, 100 MG PO BID for 7 Days, CAP Prov:ANABELL GUIDO 12/10/16 Acetaminophen* (Tylenol*) 325 Mg Tablet, 1 TAB PO Q8 Y for PAIN AND OR ELEVATED TEMP, #20 TAB Prov:VILMA YI PA-C 12/08/16 Amoxicillin* (Amoxicillin*) 500 Mg Cap, 500 MG PO TID for 10 Days, CAP Prov:BOGDAN YOUNG MD 03/20/16 Dextromethorphan Hb-Promethazine Hcl (Promethazine DM Syrup) 180 Ml Syrup, 5 ML PO Q6H Y for COUGH, #4 OZ Prov:BOGDAN YOUNG MD 03/20/16 Ibuprofen* (Motrin*) 400 Mg Tab, 400 MG PO Q6, #14 TAB Prov:BOGDAN YOUNG MD 03/20/16 Cephalexin* (Keflex*) 500 Mg Capsule, 500 MG PO QID for 7 Days, CAP Prov:SAGE OWENC 01/29/16 Meclizine Hcl* (Antivert*) 25 Mg Tablet, 25 MG PO Q6H Y for DIZZINESS, #20 TAB Prov:SAGE OWEN PA-C 01/29/16 Ondansetron Hcl* (Zofran*) 4 Mg Tablet, 4 MG PO Q6H for NAUSEA AND/OR VOMITING, #30 TAB Prov:SAGE OWEN PA-C 01/29/16 Polymyxin B Sulfate-TMP* (Polymyxin B-TMP Eye Drops*) 10 Ml Drops, 1 DROP LEFT EYE QID for 7 Days, EA Prov:JENNIFFER STODDARD NP 05/10/15 Acetaminophen* (Tylophen*) 500 Mg Capsule, 2 CAP PO Q8H Y for PAIN AND OR ELEVATED TEMP, #20 CAP Prov:SAMUEL DOMINGUEZ MD 05/07/15 Ibuprofen* (Motrin*) 800 Mg Tab, 800 MG PO Q6H Y for PAIN AND OR ELEVATED TEMP, #30 TAB Prov:SAMUEL DOMINGUEZ MD 05/07/15 Reported Medications Multivit/Min/Fol Ac/Iron/Pren* ( S*) 1 Tab Tab, 1 TAB PO DAILY, TAB 03/08/14 Allergies Allergies: Coded Allergies: No Known Allergy (Unverified , 12/10/16) PMhx/Soc History of Surgery: No Anesthesia Reaction: No Hx Neurological Disorder: No Hx Respiratory Disorders: No Hx Cardiac Disorders: No Hx Psychiatric Problems: No Hx Miscellaneous Medical Probl: No Hx Alcohol Use: No Hx Substance Use: No Hx Tobacco Use: No Physical Exam Vitals Vital Signs Date Time Temp Pulse Resp B/P Pulse Ox O2 Delivery O2 Flow Rate FiO2 01/21/17 16:21 99.0 96 20 113/60 98 Physical Exam GENERAL: Well-developed, well-nourished female. Appears in no acute distress. HEAD: Normocephalic, atraumatic. EYES: Pupils are equally reactive bilaterally. EOMs grossly intact. No conjunctival erythema. ENT: Moist mucous membranes. No uvula deviation. No kissing tonsils. NECK: Supple. No meningismus. Normal range of motion of the neck. LUNG: Clear to auscultation bilaterally. No rhonchi, wheezing, rales or coarse breath sounds. HEART: Regular rate and rhythm. No murmurs, rubs or gallops. ABDOMEN: Gravid abdomen. Soft, nontender, and nondistended. Positive bowel sounds in all four quadrants. No rebound tenderness, no guarding. (-) McBurney' s point tenderness. No CVA tenderness. BACK: No midline tenderness. Tender to palpation of the left lumbar paraspinous muscles. Positive straight leg raise on the left side. EXTREMITIES: Equal pulses bilaterally. No peripheral clubbing, cyanosis or edema. No unilateral leg swelling. NEUROLOGIC: Alert and oriented. Moving all four extremities without any difficulty. Normal speech. Steady gait. SKIN: Normal color. Warm and dry. No rashes or lesions. Procedures/MDM ED COURSE: The patient was stable throughout ED course. I kept the patient and/or family informed of laboratory and diagnostic imaging results throughout the ED course. DIAGNOSTIC IMAGING: Read by radiologist. DIAGNOSTIC IMAGING REPORT Patient: NARDA RUIZ : 1990 Age: 26 Sex: F MR #: [id number] DOS: 01/21/17 1640 Ordering MD: SHERIF GAY PA-C Location: [facility] Room/Bed: PROCEDURE: US OB. CLINICAL INDICATION: Size and dates TECHNIQUE: Multiple sonographic images of the pelvis and gravid uterus were obtained. The images were reviewed on a PACS workstation. COMPARISON: 12/10 FINDINGS: There is a single viable intrauterine gestation. Cardiac activity is present with 152 beats per minute. There is a vertex presentation. The placenta is anterior. There is no evidence for an abruption or placenta previa. There is a normal amount of amniotic fluid with a MVP = 3.6 cm. Measurements were made in order to determine age. The results are as follows: BPD = 3.5 cm HC = 12.9 cm AC = 11.2 cm FL = 2.2 cm Estimated gestational age of approximately 16 weeks and 5 days based on ultrasound measurements. Clinical age: 16 weeks and 0 days. The estimated date of delivery is 07/03/17, based on ultrasound measurements. The EFW = 168 g, 89%, based on LMP age. The ovaries were not visualized. The adnexa are normal. RPTAT: AA IMPRESSION: Single viable intrauterine gestation of approximately 16 weeks and 5 days based on ultrasound measurements. .Delgado Cagle MD, Date Time Electronically viewed and signed by .Delgado Cagle MD, MD on 01/21/2017 17: 36 .S/ CC: SHERIF GAY PA-C MEDICATIONS GIVEN: She was offered Tylenol for pain relief however she declined. MEDICAL DECISION MAKING: This is a 26-year-old female, G3, P1, who presents emergency department with lower back pain status post ground-level fall.. Vital signs were reviewed. Patient was afebrile. Patient denied any saddle anesthesia, urinary incontinence, bowel incontinence, night pain. Given the patient is , x-ray imaging was not obtained at this time. Patient understands that I am unable to rule out any fractures this time given . Pelvic ultrasound showed Single viable intrauterine gestation of approximately 16 weeks and 5 days based on ultrasound measurements..Given these findings, the patient's presentation is most consistent with lumbar strain versus sciatica. I have a much lower clinical concern for cauda equine syndrome, spinal metastases , osteomyelitis, DJD, pyelonephritis or nephrolithiasis. Low suspicion for demise. PRESCRIPTIONS: Tylenol DISCHARGE: At this time, patient is stable for discharge and outpatient management. Patient provided with a copy of all imaging studies obtained today. RICE therapy and ROM exercises were advised to avoid stiffness. I have instructed the patient to follow-up with his/her primary care physician/OBGYN in 1-2 days. I have discussed with the patient the possibility of needing to see an personal security specialist for further workup and imaging if the pain persists. I have instructed the patient to promptly return to the ER for any new or worsening symptoms including increased pain, swelling, warmth, urinary incontinence, stool incontinence, weakness or numbness. The patient and/or family expressed understanding of and agreement with this plan. All questions were answered. Home care instructions were provided. Departure Diagnosis: Primary Impression: Back pain Back pain location: back pain in unspecified location Chronicity: acute Back pain laterality: left Qualified Code: M54.9 - Acute left-sided back pain , unspecified back location Additional Impression: Weeks of gestation: unspecified Qualified Code: Z33.1 - , unspecified gestational age Condition: Stable Patient Instructions: Back Pain (Acute Or Chronic) Referrals: [facility] YOU HAVE RECEIVED A MEDICAL SCREENING EXAM AND THE RESULTS INDICATE THAT YOU DO NOT HAVE A CONDITION THAT REQUIRES URGENT TREATMENT IN THE EMERGENCY DEPARTMENT. FURTHER EVALUATION AND TREATMENT OF YOUR CONDITION CAN WAIT UNTIL YOU ARE SEEN IN YOUR DOCTORS OFFICE WITHIN THE NEXT 1-2 DAYS. IT IS YOUR RESPONSIBILITY TO MAKE AN APPOINTMENT FOR FOLOW-UP CARE. IF YOU HAVE A PRIMARY DOCTOR --you should call your primary doctor and schedule an appointment IF YOU DO NOT HAVE A PRIMARY DOCTOR YOU CAN CALL OUR PHYSICIAN REFERRAL HOTLINE AT IF YOU CAN NOT AFFORD TO SEE A PHYSICIAN YOU CAN CHOSE FROM THE FOLLOWING [facility] [address] [facility] [address] [facility] [facility] [address] [facility] [address] [facility] [address] [facility]. [facility] [address] [facility] [facility] YOU HAVE RECEIVED A MEDICAL SCREENING EXAM AND THE RESULTS INDICATE THAT YOU DO NOT HAVE A CONDITION THAT REQUIRES URGENT TREATMENT IN THE EMERGENCY DEPARTMENT. FURTHER EVALUATION AND TREATMENT OF YOUR CONDITION CAN WAIT UNTIL YOU ARE SEEN IN YOUR DOCTORS OFFICE WITHIN THE NEXT 1-2 DAYS. IT IS YOUR RESPONSIBILITY TO MAKE AN APPOINTMENT FOR FOLOW-UP CARE. IF YOU HAVE A PRIMARY DOCTOR --you should call your primary doctor and schedule and appointment IF YOU DO NOT HAVE A PRIMARY DOCTOR YOU CAN CALL OUR PHYSICIAN REFERRAL HOTLINE AT . IF YOU CAN NOT AFFORD TO SEE A PHYSICIAN YOU CAN CHOSE FROM THE FOLLOWING [facility]: [facility] [address] [place] [address] [facility] [address] [place] [address] [facility] [address] [place] [address] [employer] [address] [facility] [address] [place] [address] OFFICE FAX , [facility] [address] [place] [address] [address] MELLO, [place] [address] [place] [address] [address] AVILA, [facility] [address], [address], [facility] [address] [address] RICE, [facility] [address] [place] [address] [facility] [address] [place] [address] [phone] [address] [facility] [address] - [address] CAGLE, [facility] [address], [facility] [address] [address] [place], [place] [address] [facility]. [address], [facility] [address] [address] REEVES, [facility] [address] [place], [place] [id number] Additional Instructions: Call your primary care doctor/OBGYN TOMORROW for an appointment during the next 1-2 days.See the doctor sooner or return here if your condition worsens before your appointment time. Unable to rule out any fractures, ligament or tendon injuries. At this time. Follow-up with your primary is physician and/or BENCH EXAMINER if her pain persists. SHERIF GAY PA-C January 21, 2017 16:58 SHERIF GAY PA-C January 21, 2017 16:58
--- NOTE | 2017-01-21 17:36 | RADRPT ---
PROCEDURE: US OB. CLINICAL INDICATION: Size and dates TECHNIQUE: Multiple sonographic images of the pelvis and gravid uterus were obtained. The images were reviewed on a PACS workstation. COMPARISON: 12/10 FINDINGS: There is a single viable intrauterine gestation. Cardiac activity is present with 152 beats per mi nute. There is a vertex presentation. The placenta is anterior. There is no evidence for an abruption or placenta previa. There is a normal amount of amniotic fluid with a MVP = 3.6 cm. Measurements were made in order to determine age. The results are as follows: BPD =3.5 cm HC =12.9 cm AC =11.2 cm FL =2.2 cm Estimated gestational age of approximately 16 weeks and 5 days based on ultrasound measurements. Clinical age: 16 weeks and 0 days. The estimated date of delivery is 07/03/17, based on ultrasound measurements. The EFW = 168 g, 89%, based on LMP age. The ovaries were not visualized. The adnexa are normal. RPTAT: AA IMPRESSION: Single viable intrauterine gestation of approximately 16 weeks and 5 days based on ultrasound measu rements. .Delgado Cagle MD, Date Time Electronically viewed and signed by .Delgado Cagle MD, MD on 01/21/2017 17:36 .S/
== END 2017-01-21 18:24 | disposition home or self-care (01) ==
LOC: FTE 16:18
DX: O99.89 Other specified diseases and conditions complicating pregnancy, childbirth and the puerperium (principal); M54.5 Low back pain; Z3A.16 16 weeks gestation of pregnancy
CPT/HCPCS: 76805; Z7502

== ENCOUNTER 2017-02-11 14:20 | Emergency (ER) | payer MEDICAID ==
[~2017-02-11] VITALS: Ht 160 cm; Wt 51.0 kg
[2017-02-11 14:24] VITALS: Ht 160 cm; Wt 51.0 kg
[2017-02-11 15:52] LABS: ADD SCAN DIFF NO
[2017-02-11 15:56] LABS: BASOPHILS % 0.3 % (0.0-2.0); EOSINOPHILS % 0.5 % (0.0-7.0); HEMATOCRIT 32.7 % (37.0-47.0); LYMPHOCYTES # 1.6 10^3/ul (0.8-2.9); LYMPHOCYTES % 21.7 % (15.0-51.0); MEAN CORPUSCULAR HEMOGLOBIN 30.9 pg (29.0-33.0); MEAN CORPUSCULAR HGB CONC 33.6 g/dl (32.0-37.0); MEAN CORPUSCULAR VOLUME 91.9 fl (82.0-101.0); MEAN PLATELET VOLUME 10.8 fl (7.4-10.4); MONOCYTE # 0.4 10^3/ul (0.3-0.9); MONOCYTES % 5.2 % (0.0-11.0); NEUTROPHIL # 5.4 10^3/ul (1.6-7.5); NEUTROPHILS % 71.9 % (39.0-77.0); PLATELET COUNT 256 10^3/UL (140-415); RED BLOOD COUNT 3.56 10^6/ul (4.20-5.40); RED CELL DISTRIBUTION WIDTH 13.8 % (11.5-14.5); WHITE BLOOD COUNT 7.5 10^3/ul (4.8-10.8)
[2017-02-11 15:57] LABS: ADD UMIC YES; UR BILIRUBIN (Dip) NEGATIVE (NEGATIVE); UR BLOOD (Dip) TRACE (NEGATIVE); UR CLARITY CLEAR (CLEAR); UR COLOR LT. YELLOW (YELLOW); UR GLUCOSE (Dip) NEGATIVE (NEGATIVE); UR KETONES (Dip) 40 (NEGATIVE); UR LEUKOCYTE ESTERASE (Dip) 1+ (NEGATIVE); UR NITRITE (Dip) NEGATIVE (NEGATIVE); UR TOTAL PROTEIN (Dip) NEGATIVE (NEGATIVE); UR UROBILINOGEN (Dip) 0.2 E.U./dL (0.1-1.0)
[2017-02-11 16:10] LABS: UR SQUAMOUS EPITHELIAL CELL MODERATE; URINE RBCS 0-2 /HPF (0)
--- NOTE | 2017-02-11 16:22 | ERA ---
ER Documentation Chief Complaint Date/Time DATE: 02/11/17 TIME: 16:21 Chief Complaint 18 WEEKS , HEAVY VAGINAL BLEEDING SINCE HPI This is an otherwise healthy 26-year-old female who is 18 weeks . Female is . ROS All systems reviewed and are negative except as per history of present illness. Medications Home Meds Active Scripts Acetaminophen* (Tylophen*) 500 Mg Capsule, 1 CAP PO Q6H Y for PAIN AND OR ELEVATED TEMP, #20 CAP Prov:SHERIF GAY PA-C 01/21/17 Nitrofurantoin Monohyd Macrocr* (Macrobid*) 100 Mg Capsr, 100 MG PO BID for 7 Days, CAP Prov:ANABELL GUIDO 12/10/16 Acetaminophen* (Tylenol*) 325 Mg Tablet, 1 TAB PO Q8 Y for PAIN AND OR ELEVATED TEMP, #20 TAB Prov:VILMA YI PA-C 12/08/16 Amoxicillin* (Amoxicillin*) 500 Mg Cap, 500 MG PO TID for 10 Days, CAP Prov:BOGDAN YOUNG MD 03/20/16 Dextromethorphan Hb-Promethazine Hcl (Promethazine DM Syrup) 180 Ml Syrup, 5 ML PO Q6H Y for COUGH, #4 OZ Prov:BOGDAN YOUNG MD 03/20/16 Ibuprofen* (Motrin*) 400 Mg Tab, 400 MG PO Q6, #14 TAB Prov:BOGDAN YOUNG MD 03/20/16 Cephalexin* (Keflex*) 500 Mg Capsule, 500 MG PO QID for 7 Days, CAP Prov:SAGE OWEN PA-C 01/29/16 Meclizine Hcl* (Antivert*) 25 Mg Tablet, 25 MG PO Q6H Y for DIZZINESS, #20 TAB Prov:SAGE OWEN PA-C 01/29/16 Ondansetron Hcl* (Zofran*) 4 Mg Tablet, 4 MG PO Q6H for NAUSEA AND/OR VOMITING, #30 TAB Prov:SAGE OWEN PA-C 01/29/16 Polymyxin B Sulfate-TMP* (Polymyxin B-TMP Eye Drops*) 10 Ml Drops, 1 DROP LEFT EYE QID for 7 Days, EA Prov:JENNIFFER STODDARD NP 05/10/15 Acetaminophen* (Tylophen*) 500 Mg Capsule, 2 CAP PO Q8H Y for PAIN AND OR ELEVATED TEMP, #20 CAP Prov:SAMUEL DOMINGUEZ MD 05/07/15 Ibuprofen* (Motrin*) 800 Mg Tab, 800 MG PO Q6H Y for PAIN AND OR ELEVATED TEMP, #30 TAB Prov:SAMUEL DOMINGUEZ MD 05/07/15 Reported Medications Multivit/Min/Fol Ac/Iron/Pren* ( S*) 1 Tab Tab, 1 TAB PO DAILY, TAB 03/08/14 Allergies Allergies: Coded Allergies: No Known Allergy (Unverified , 12/10/16) PMhx/Soc History of Surgery: No Anesthesia Reaction: No Hx Neurological Disorder: No Hx Respiratory Disorders: No Hx Cardiac Disorders: No Hx Psychiatric Problems: No Hx Miscellaneous Medical Probl: Yes () Hx Alcohol Use: No Hx Substance Use: No Hx Tobacco Use: No Smoking Status: Never smoker Physical Exam Vitals Vital Signs Date Time Temp Pulse Resp B/P Pulse Ox O2 Delivery O2 Flow Rate FiO2 02/11/17 17:20 98.2 82 20 103/69 100 Room Air 02/11/17 14:24 98.0 90 18 102/67 98 Physical Exam Const: Well-appearing otherwise healthy 26-year-old female in no acute distress Head: Atraumatic Eyes: Normal Conjunctiva ENT: Normal External Ears, Nose and Mouth. Neck: Full range of motion..~ No meningismus. Resp: Clear to auscultation bilaterally Cardio: Regular rate and rhythm, no murmurs Abd: Soft, non tender, non distended. Normal bowel sounds Skin: No petechiae or rashes Back: No midline or flank tenderness Ext: No cyanosis, or edema Neur: Awake and alert Psych: Normal Mood and Affect Result Diagram: 02/11/17 1546 Results 24 hrs Laboratory Tests Test 02/11/17 15:46 White Blood Count 7.510^3/ul Red Blood Count 3.5610^6/ul Hemoglobin 11.0g/dl Hematocrit 32.7% Mean Corpuscular Volume 91.9fl Mean Corpuscular Hemoglobin 30.9pg Mean Corpuscular Hemoglobin Concent 33.6g/dl Red Cell Distribution Width 13.8% Platelet Count 59196^3/UL Mean Platelet Volume 10.8fl Neutrophils % 71.9% Lymphocytes % 21.7% Monocytes % 5.2% Eosinophils % 0.5% Basophils % 0.3% Nucleated Red Blood Cells % 0.0/100WBC Neutrophils # 5.410^3/ul Lymphocytes # 1.610^3/ul Monocytes # 0.410^3/ul Eosinophils # 0.010^3/ul Basophils # 0.010^3/ul Nucleated Red Blood Cells # 0.010^3/ul Urine Color LT. YELLOW Urine Clarity CLEAR Urine pH 6.0 Urine Specific [place] 1.015 Urine Ketones 40 Urine Nitrite NEGATIVE Urine Bilirubin NEGATIVE Urine Urobilinogen 0.2 E.U./dL Urine Leukocyte Esterase 1+ Urine Microscopic RBC 0-2/HPF Urine Microscopic WBC 2-5/HPF Urine Squamous Epithelial Cells MODERATE Urine Hemoglobin TRACE Urine Glucose NEGATIVE% Urine Total Protein NEGATIVE Beta HCG, Quantitative 64387.0mIU/ml Procedures/MDM Patient is presenting for vaginal bleeding during . Patient is 18 weeks . My differential diagnosis at this time is vast and includes but is not limited to the following: Ectopic , spontaneous , GTD, placenta previa, among others. Patient laboratory results were remarkable for 1+ leukocyte esterase and moderate squamous epithelial cells. Patient's blood results were consistent with microcytic anemia. Ultrasound was taken and read by the radiologist and given the following impression: IMPRESSION: 1. Anterior grade 0 placenta with a total placenta previa. 2. Single viable fetus is identified in cephalic lie. 3. AUA: 19 weeks 4 days plus or minus 1 week 3 days. At this time most likely diagnosis is placenta previa as noted in the ultrasound. I have little suspicion for infection. I have discussed this case with my attending who is agreed with assessment and plan. The plan will include outpatient supportive therapy. Patient has an appointment with her OB/ ASSOCIATE DIRECTOR OF BIOSTATISTICS tomorrow afternoon. I have instructed to rest avoid physical activity and to avoid any vaginal penetration. Patient will be discharged with discharge instructions and return precautions. Departure Diagnosis: Primary Impression: Placenta previa Qualified Code: O44.02 - Placenta previa, second trimester Additional Impressions: Vaginal bleeding Vaginal bleeding in patient at less than 20 weeks gestation Condition: Stable Additional Instructions: Follow up with your CLOCK ASSEMBLER within the next 1-3 days. Be sure to take todays test results (provided within this packet) with you to your doctors appointment in 2 days. If you do not have an CLOCK ASSEMBLER, a handout of locations with contact information will be provided to you. Follow all the recommendations we have previously discussed and the following written recommendations: If symptoms change or worsen, return to the emergency department immediately. Do not put anything in your vagina. Do not have sex, douche, or use tampons; these actions may increase your risk for infection and miscarriage. Rest as directed. Do not exercise or engage in strenuous activities; such activities may cause labor or miscarriage. If you have any further questions, ask before you leave the hospital, or contact the medical provider managing your . VILMA YI PA-C Feb 11, 2017 16:22
--- NOTE | 2017-02-11 16:29 | RADRPT ---
PROCEDURE: Real Time Sonogram. 02/11/20173:54 PM CLINICAL INDICATION: 26-year-old female with vaginal bleeding. TECHNIQUE: This procedure was performed on a high-resolution real time Unit using a endovaginal pr obe. COMPARISON: OB sonogram 01/21/2017. FINDINGS: The uterus is identified and contains a single fetus. Presentation: Cephalic. Cervical Length: Not measured.Placental Location: Anterior grade 0.Placental Previa: There is a to jese placenta previa. Body limb and cardiac motion: Yes.Heart rate: 157 beats per minute. Amniotic fluid volume:Normal. Measured data: BPD:4.5 cm19 weeks 4 days. HC:17.01 cm19 weeks 4 days AC:14.27 cm19 weeks 4 days. FC:3.13 cm.19 weeks 5 days. AUA:19 weeks 4 daysplus or minus 1 week 3 days. TREASURE (AUA):July 04, 2017. Serial scan estimated menstrual age: Not calculated. weight: 305 g plus or minus 46 g Endovaginal imaging utilized: Yes. Additional findings:None IMPRESSION: 1. Anterior grade 0 placenta with a total placenta previa. 2. Single viable fetus is identified in cephalic lie. 3. AUA: 19 weeks 4 days plus or minus 1 week 3 days. RPTAT:AAJJ Physician Hernandez Date Time Electronically viewed and signed by Physician Hernandez on 02/11/2017 16:29 TACOS/
[2017-02-11 17:20] VITALS: BP 103/69; PULSE 82; RESP 20; TEMP 98.2
== END 2017-02-11 17:20 | disposition home or self-care (01) ==
LOC: FTE 14:20
DX: O44.02 Complete placenta previa NOS or without hemorrhage, second trimester (principal); Z3A.19 19 weeks gestation of pregnancy
CPT/HCPCS: 36415; 76805; 81001; 84702; 85025; 86900; 86901

== ENCOUNTER 2017-03-30 08:09 | Outpatient (CLI) | payer MEDICAID ==
[~2017-03-30] VITALS: Ht 160 cm; Wt 53.6 kg
[2017-03-30 08:24] VITALS: BP 110/71; PULSE 85; Ht 160 cm; Wt 53.6 kg
[2017-03-30] MEDS ORDERED: PRENAT PO (08:27)
[2017-03-30 08:54] LABS: BASOPHILS % 0.4 % (0.0-2.0); EOSINOPHILS # 0.1 10^3/ul (0.0-0.5); EOSINOPHILS % 1.1 % (0.0-7.0); HEMATOCRIT 29.9 % (37.0-47.0); LYMPHOCYTES # 1.7 10^3/ul (0.8-2.9); LYMPHOCYTES % 23.8 % (15.0-51.0); MEAN CORPUSCULAR HEMOGLOBIN 29.1 pg (29.0-33.0); MEAN CORPUSCULAR HGB CONC 33.4 g/dl (32.0-37.0); MEAN CORPUSCULAR VOLUME 86.9 fl (82.0-101.0); MEAN PLATELET VOLUME 11.2 fl (7.4-10.4); MONOCYTE # 0.5 10^3/ul (0.3-0.9); MONOCYTES % 6.9 % (0.0-11.0); NEUTROPHIL # 4.7 10^3/ul (1.6-7.5); NEUTROPHILS % 67.4 % (39.0-77.0); PLATELET COUNT 267 10^3/UL (140-415); RED BLOOD COUNT 3.44 10^6/ul (4.20-5.40); RED CELL DISTRIBUTION WIDTH 13.1 % (11.5-14.5)
--- NOTE | 2017-03-30 09:43 | RADRPT ---
PROCEDURE: Limited OB ultrasound. CLINICAL INDICATION: Placental location . TECHNIQUE: Sonographic evaluation to assess placental location was performed. Transabdominal imag ing of the gravid uterus was performed. COMPARISON: 02/11/2017 FINDINGS: Single live intrauterine with cardiac activity is identified. Cephalic presentation . Heart rate 142 beats per minute. Anterior grade 1 placenta. No evidence of placenta previa or ab ruption. IMPRESSION: 1. Anterior grade 1 placenta. RPTAT: QQ .Rupesh Shafer MD, Date Time Electronically viewed and signed by .Rupesh Shafer MD, MD on 03/30/2017 09:43 .L/
--- NOTE | 2017-03-30 10:06 | CONS ---
Date/Time of Note Date/Time of Note DATE: 03/30/17 TIME: 09:58 Consultation Date/Type/Reason Admit Date/Time March 30, 2017 OB triage consult Reason for Consultation This patient is a 26 years old 2 para 1 living 1 who had her previous delivery vaginally, her estimated date of confinement is which makes her 25 weeks and 4 days. She came in triage complaining of vaginal bleeding after having intercourse about 6:00 in the morning Her course so far apparently was normal without any contact complications. On examination she is well developed well nourished lady with. Her general vital signs appear to be normal with blood pressure 110/71 pulse rate 85 respiration.. 18 temperature 97.8.. And oxygen saturation of 98% at room temperature.. On examination of the abdomen, it was soft ,no tenderness ,no contraction, heart tone was normal Laboratory Tests Test 03/30/17 08:40 White Blood Count 7.010^3/ul Red Blood Count 3.4410^6/ul Hemoglobin 10.0g/dl Hematocrit 29.9% Mean Corpuscular Volume 86.9fl Mean Corpuscular Hemoglobin 29.1pg Mean Corpuscular Hemoglobin Concent 33.4g/dl Red Cell Distribution Width 13.1% Platelet Count 27121^3/UL Mean Platelet Volume 11.2fl Neutrophils % 67.4% Lymphocytes % 23.8% Monocytes % 6.9% Eosinophils % 1.1% Basophils % 0.4% Nucleated Red Blood Cells % 0.0/100WBC Neutrophils # 4.710^3/ul Lymphocytes # 1.710^3/ul Monocytes # 0.510^3/ul Eosinophils # 0.110^3/ul Basophils # 0.010^3/ul Nucleated Red Blood Cells # 0.010^3/ul Constitutional: No chills, No diaphoresis, No disoriented, No febrile, No improved, No no complaints, No other, No poor po, No requiring IVF, No requiring O2 Eyes: No discharge, No no complaints, No other, No pain, No redness, No visual change ENT: No bleeding, No congestion, No discharge, No dysphagia, No no complaints, No other, No pain, No sore throat Respiratory: No cough, No no complaints, No other, No pain, No pleuritic pain, No shortness of breath, No sputum, No wheezing Cardiovascular: No chest pain, No edema, No lightheadedness, No no complaints, No orthopenea, No other, No palpitations, No paroxysmal nocturnal dyspnea Genitourinary: other (She did not have any contractions or heavy vaginal bleeding for this reason pelvic exam was not performed), No bleeding, No discharge, No dysuria, No flank pain, No hematuria, No no complaints Musculoskeletal: No back pain, No bone/joint pain, No neck pain, No no complaints, No other, No restricted range of motion, No swelling Skin: No bruising, No erythema, No laceration, No no complaints, No other, No pruritis, No rash, No skin lesions Neurologic: No confusion, No dizziness, No focal-weakness, No headache, No no complaints, No other, No seizure, No syncope Additional Comments On ultrasound study, result was a single live intrauterine with heart activity, in cephalic presentation, with heart rate of 142/min and there was no evidence of a placenta abruptio placenta was anterior and grade 1. 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 Precautions needed during regarding intercourse or any other activity was explained to her Social History Smoking Status: Never smoker Exam/Review of Systems Vital Signs Vitals Vital Signs Date Time Temp Pulse Resp B/P Pulse Ox O2 Delivery O2 Flow Rate FiO2 03/30/17 08:24 97.8 85 110/71 98 Room Air Results Result Diagram: 03/30/17 0840 Results 24 hrs Laboratory Tests Test 03/30/17 08:40 White Blood Count 7.0 Red Blood Count 3.44 L Hemoglobin 10.0 L Hematocrit 29.9 L Mean Corpuscular Volume 86.9 Mean Corpuscular Hemoglobin 29.1 Mean Corpuscular Hemoglobin Concent 33.4 Red Cell Distribution Width 13.1 Platelet Count 267 Mean Platelet Volume 11.2 H Neutrophils % 67.4 Lymphocytes % 23.8 Monocytes % 6.9 Eosinophils % 1.1 Basophils % 0.4 Nucleated Red Blood Cells % 0.0 Neutrophils # 4.7 Lymphocytes # 1.7 Monocytes # 0.5 Eosinophils # 0.1 Basophils # 0.0 Nucleated Red Blood Cells # 0.0 JESUS AVILA MD Mar 30, 2017 10:06
--- NOTE | 2017-03-30 10:12 | TRIAGE ---
OB Triage Datetime Report Generated by CPN: 03/30/2017 10:12 Datetime: 03/30/2017 08:58 Labor Evaluation Frequency: X1 Monitor Mode: External Duration (sec)2399: 50 Quality: Mild Pattern: Normal: <= 5 Contractions in 10 Minutes Resting Tone [place]: Relaxed Heart Rate FHR Baseline Rate: 140 FHR Baseline Changes: No Baseline Change Variability: Moderate 6-25 bpm Decelerations: None Category: Category I Pain Assessment Pain Scale: 0 Pain Presence: None/Denies Pain Type: N/A Datetime: 03/30/2017 08:19 Pain Assessment Pain Scale: 0 Pain Presence: None/Denies Pain Type: N/A Datetime: 03/30/2017 08:16 Time of Arrival: 03/30/2017 08:06 EGA: 25.4 Arrived By: Wheelchair Arrived From: Home Chief Complaint: PT PRESENTS TO TRIAGE COMPLAINING OF BLEEDING SINCE THIS MORNING AROUND 0600. STA RTED DURING SEXUAL INTERCOURSE AND CONTINUED AFTER, ALSO REPORTS SOME MILD DIZZINESS Movement: Decreased Contractions: Denies/Absent Rupture of Membranes: Denies Vaginal Bleeding: Small Vaginal Discharge: Present Recent Sexual Intercouse: Yes Abdominal Trauma: Not Applicable Time Provider Notified: 03/30/2017 08:31 Provider Notified: [place] Initial Plan: EFM/U/S/CBC
== END 2017-03-30 10:11 | disposition home or self-care (01) ==
LOC: OBT 08:09 → L-D 08:11 → OBT 10:11
DX: O46.8X2 Other antepartum hemorrhage, second trimester (principal); Z3A.25 25 weeks gestation of pregnancy
CPT/HCPCS: 36415; 76815; 85025; Z7500; G0463

== ENCOUNTER 2017-06-03 00:30 | Outpatient (CLI) | payer MEDICAID, OTHER ==
[~2017-06-03] VITALS: Ht 160 cm; Wt 57.4 kg
[~2017-06-03 00:30] MED LIST changes: -ACET325T33 PO; -ACET500C5 PO; -AMO500 PO; -CEPH-443 PO; -D-ME118S6 PO; -IBUP400T22 PO; -IBUP800T25 PO; -MECL25TA2 PO; -NITR-58 PO; -ONDA4TAB8 PO; -POLY10DR19 LEFT EYE
[2017-06-03 01:16] VITALS: Ht 160 cm; Wt 57.4 kg
[2017-06-03 01:17] VITALS: BP 109/69; PULSE 97; RESP 18
--- NOTE | 2017-06-03 01:55 | PN ---
Triage Information Date/Time Reason for visit: lower abdominal cramping and pressure since AM 10/8 Weeks of Gestation 34+6 /Para 4/1 Diabetes: none Hypertention: none Additional information Reports normal FM, denies LOF, VB or dysuria. Has felt the need to urinate frequently. Lost part of mucous plug slowly over the day Objective Vital Signs Date Time Temp Pulse Resp B/P Pulse Ox O2 Delivery O2 Flow Rate FiO2 06/03/17 01:17 98.0 97 18 109/69 Room Air Heart Rate: 140's Contractions: >10 Minutes Apart (2-4 contractions/hr) Exam 2.5/60/-2, unchanged over several hours Disposition: Discharge Assessment/Plan Pt w/o evidence of labor after prolonged observation and serial exams NST reactive U/A wnl Since pt is not in PTL, will defer corticosteroids at this time Appropriate for d/c home Strict PTL, PPROM and FKC precautions reviewed Encouraged pt to call clinic this morning and schedule an appointment with her Primary OB BRITTANY MERCHANT MD Jun 03, 2017 01:55
[2017-06-03 02:29] LABS: ADD UMIC NO; UR ASCORBIC ACID NEGATIVE (NEGATIVE); UR BILIRUBIN (Dip) NEGATIVE (NEGATIVE); UR BLOOD (Dip) NEGATIVE (NEGATIVE); UR CLARITY CLEAR (CLEAR); UR COLOR STRAW (YELLOW); UR GLUCOSE (Dip) NEGATIVE (NEGATIVE); UR KETONES (Dip) NEGATIVE (NEGATIVE); UR LEUKOCYTE ESTERASE (Dip) NEGATIVE Leu/ul (NEGATIVE); UR NITRITE (Dip) NEGATIVE (NEGATIVE); UR SPECIFIC GRAVITY (Dip) 1.002 (1.003-1.030); UR TOTAL PROTEIN (Dip) NEGATIVE (NEGATIVE); UR UROBILINOGEN (Dip) NEGATIVE (NEGATIVE)
--- NOTE | 2017-06-03 07:17 | TRIAGE ---
OB Triage Datetime Report Generated by CPN: 06/03/2017 07:17 Datetime: 06/03/2017 05:27 Labor Evaluation Frequency: X3 Monitor Mode: External Duration (sec)2399: 40-60 Quality: Mild Pattern: Normal: <= 5 Contractions in 10 Minutes Resting Tone [place]: Relaxed Datetime: 06/03/2017 05:22 Stage of : OB Triage Pain Assessment Pain Scale: 3 Pain Presence: Intermittent Pain Type: Cramping Datetime: 06/03/2017 05:19 Stage of : OB Triage Vaginal Exam Dilatation (cms): 2.5 Effacement (%): 60 Station: -2 Exam By: BE Datetime: 06/03/2017 04:30 Labor Evaluation Frequency: X3 Monitor Mode: External Duration (sec)2399: 50-90 Quality: Mild Pattern: Normal: <= 5 Contractions in 10 Minutes Resting Tone [place]: Relaxed Datetime: 06/03/2017 03:30 Labor Evaluation Frequency: X3 Monitor Mode: External Duration (sec)2399: 40-60 Quality: Mild Pattern: Normal: <= 5 Contractions in 10 Minutes Resting Tone [place]: Relaxed Datetime: 06/03/2017 02:30 Labor Evaluation Frequency: IRREGULAR Monitor Mode: External Duration (sec)2399: 40-80 Quality: Mild Pattern: Normal: <= 5 Contractions in 10 Minutes Resting Tone [place]: Relaxed Datetime: 06/03/2017 02:10 Vaginal Exam Dilatation (cms): 2.5 Effacement (%): 60 Station: -2 Exam By: BE Vaginal Bleeding: None Cervix, Consistency: Moderate Cervix, Position: Midposition Presentation 'A': Cephalic Datetime: 06/03/2017 01:30 Labor Evaluation Frequency: IRREGULAR Monitor Mode: External Duration (sec)2399: 50-90 Quality: Mild Pattern: Normal: <= 5 Contractions in 10 Minutes Resting Tone [place]: Relaxed Heart Rate FHR Baseline Rate: 140 Monitor Mode: External [place] Variability: Moderate 6-25 bpm Accelerations: 15X15 Decelerations: None Category: Category I Datetime: 06/03/2017 01:00 Time of Arrival: 06/03/2017 00:26 EGA: 34.5 Arrived By: Wheelchair Arrived From: Home Chief Complaint: PATIENT STATES THAT SHE LOST HER MUCOUS PLUG AFTER HAVING CRAMPING ALL DAY Movement: Present Contractions: Regular Time Contractions Began: 06/02/2017 10:00 Contractions: Q3-5 MIN PER PATIENT Rupture of Membranes: Denies Vaginal Bleeding: None Vaginal Discharge: Denies Recent Sexual Intercouse: Yes Abdominal Trauma: Not Applicable Patient Complaints: Contractions Initial Plan: CEFM, UA, SVE Datetime: 06/03/2017 00:44 Stage of : OB Triage Assessment Type: Triage Maternal Assessment Level of Consciousness: Fully Conscious DTR's/Clonus: DTRs 2+; No Clonus Headache: Denies Blurred Vision: No Respiratory Effort: Unlabored; Regular Rhythm; Equal Expansion Breath Sounds, Left: Clear and Equal Breath Sounds, Right: Clear and Equal Nausea/Vomiting: Denies RUQ Epigastric Pain: Denies Facial Edema: None Fall Risk Assessment History of Falling: (0) No Secondary Diagnosis: (0) No Ambulatory Aid: (0) Bedrest/Nurse Assist IV Therapy: (0) No Gait: (0) Normal/Bedrest/Immobile Mental Status: (0) Oriented to Own Ability Fall Score: 0 Fall Risk Score Definition: No Risk: No action required Datetime: 03/30/2017 08:16 EGA: 25.4
== END 2017-06-03 05:45 | disposition home or self-care (01) ==
LOC: L-D 00:30 → OBT 00:30
DX: O26.893 Other specified pregnancy related conditions, third trimester (principal); Z3A.34 34 weeks gestation of pregnancy; R10.30 Lower abdominal pain, unspecified; R35.0 Frequency of micturition
CPT/HCPCS: 81003; Z7500; G0463

== ENCOUNTER 2017-06-18 02:01 | Inpatient (IN) | payer OTHER ==
[~2017-06-18] VITALS: Ht 160 cm; Wt 59.0 kg
[2017-06-18] VITALS (7 sets, daily range): BP systolic 106–126; BP diastolic 57–87; PULSE 75–86; RESP 18–20; Ht 160 cm; Wt 59.0 kg
[2017-06-18] MEDS ORDERED: LACTATED RINGER'S 1,000 ML IV SCH (02:18)
[2017-06-18] MEDS ORDERED: OXYTOCIN 30 UNITS/LR 500 ML IV PRN ×2 (02:30→06:00)
[2017-06-18] MEDS ORDERED: LIDOCAINE 1% (MPF) 30 ML INJ INJ PRN (02:30)
[2017-06-18] MEDS ORDERED: METHYLERGONOVINE 0.2 MG INJ IM PRN ×2 (02:30→06:00)
[2017-06-18] MEDS ORDERED: LACTATED RINGER'S 1,000 ML IV PRN (02:30)
[2017-06-18] MEDS ORDERED: AMPICILLIN 2 GM/NS (PMX) 100 ML IV ONE (02:30)
[2017-06-18] MEDS ORDERED: CARBOPROST 250 MCG INJ IM PRN ×2 (02:30→06:00)
[2017-06-18] MEDS ORDERED: OXYTOCIN 30 UNITS/LR 500 ML IV SCH (02:30)
[2017-06-18] MEDS ORDERED: MISOPROSTOL 200 MCG TAB PR PRN ×2 (02:30→06:00)
[2017-06-18] MEDS ORDERED: HYDROCODONE/APAP (5/325) TAB PO PRN (02:30)
[2017-06-18] MEDS ORDERED: BUTORPHANOL 2 MG INJ IV PRN ×2 (02:30)
[2017-06-18] MEDS ORDERED: IBUPROFEN 600 MG TAB PO PRN (02:30)
--- NOTE | 2017-06-18 03:00 | TRIAGE ---
OB Triage Datetime Report Generated by CPN: 06/18/2017 03:00 Datetime: 06/18/2017 02:27 Membrane Status: Intact Datetime: 06/18/2017 02:13 Time of Arrival: 06/18/2017 02:13 EGA: 37.0 Arrived By: Stretcher Arrived From: OB Triage Chief Complaint: srom @0115 and UC's Movement: Present Contractions: Regular Time Contractions Began: 06/18/2017 01:15 Patient Complaints: Contractions Time Provider Notified: 06/18/2017 02:08 Provider Notified: Jayla Initial Plan: SVE Datetime: 06/18/2017 02:11 Stage of : OB Triage Datetime: 06/18/2017 02:08 Stage of : OB Triage Datetime: 06/18/2017 02:06 Stage of : OB Triage Vaginal Exam Dilatation (cms): 6.0 Effacement (%): 80 Station: -1 Exam By: BE Membrane Status: Ruptured Membranes Ruptured Date/Time: 06/18/2017 01:15 Membranes Rupture Method: Spontaneous Amniotic Fluid Color: Clear Amniotic Fluid Amount: Moderate Amniotic Fluid Odor: None Vaginal Bleeding: None Datetime: 06/03/2017 01:00 EGA: 34.5 Time Provider Notified: 06/03/2017 01:08 Provider Notified: MERCHANT Datetime: 06/03/2017 00:44 Fall Risk Assessment Fall Score: 0 Fall Risk Score Definition: No Risk: No action required Datetime: 03/30/2017 08:16 EGA: 25.4
[2017-06-18] MEDS: OXYTOCIN 30 UNITS/LR 500 ML IV SCH ×4 (03:06→13:00)
[2017-06-18 03:18] LABS: BASOPHILS % 0.2 % (0.0-2.0); EOSINOPHILS # 0.1 10^3/ul (0.0-0.5); EOSINOPHILS % 0.6 % (0.0-7.0); HEMATOCRIT 28.7 % (37.0-47.0); LYMPHOCYTES # 2.9 10^3/ul (0.8-2.9); LYMPHOCYTES % 30.3 % (15.0-51.0); MEAN CORPUSCULAR HEMOGLOBIN 25.1 pg (29.0-33.0); MEAN CORPUSCULAR HGB CONC 31.4 g/dl (32.0-37.0); MEAN CORPUSCULAR VOLUME 80.2 fl (82.0-101.0); MEAN PLATELET VOLUME 12.5 fl (7.4-10.4); MONOCYTE # 0.6 10^3/ul (0.3-0.9); MONOCYTES % 6.7 % (0.0-11.0); NEUTROPHIL # 5.9 10^3/ul (1.6-7.5); NEUTROPHILS % 61.6 % (39.0-77.0); NUCLEATED RED BLOOD CELLS% 0.4 /100WBC (0.0-0.0); PLATELET COUNT 223 10^3/UL (140-415); RED BLOOD COUNT 3.58 10^6/ul (4.20-5.40); RED CELL DISTRIBUTION WIDTH 14.5 % (11.5-14.5); WHITE BLOOD COUNT 9.6 10^3/ul (4.8-10.8)
[2017-06-18 03:41] LABS: INR 0.95; PROTIME 12.7 Sec (12.2-14.2)
[2017-06-18 03:42] LABS: PARTIAL THROMBOPLASTIN TIME 28.7 Sec (25.0-35.0)
--- NOTE | 2017-06-18 03:47 | HP ---
Date/Time of Note Date/Time of Note DATE: 06/18/17 TIME: 03:42 OB - History Hx of Present Free Text/Dictation 26y.o A2(sab) at 37ws in labor with SROM 0115 06/18/17 VE /-1 GBS unknown ampicillin given admitted for expectant management. Chief Complaint: labor Estimated Due Date: Jul 09, 2017 : 4 Para: 1 Spontaneous : 0 Therapeutic : 0 Care: Limited Care Ultrasounds: No ultrasounds Obstetrical Complications: None Past Family/Social History * Past Medical, Surgical, Family and Obstetric Histories reviewed from chart. Blood Type: Unknown Rubella: unknown RPR/VDRL: Unknown GBS Status: Unknown HBsAG: Unknown OB Admission Exam Vital Signs Vital Signs Vital Signs Date Time Temp Pulse Resp B/P Pulse Ox O2 Delivery O2 Flow Rate FiO2 06/18/17 02:15 98.2 77 20 126/87 Room Air Physical Exam HEENT: WNL Heart: Rhythm Normal Lungs: Clear, Equal Abdomen: WNL Extremities: Normal Reflexes: Normal Cervical Dilatation: 6cm Effacement: 75% Station: -1 Membranes: Ruptured Amniotic Fluid: Clear Heart Rate: 140's Accelerations: Accelerations Present Decelerations: No Decelerations Varibility: Moderate Contractions on Admission: < 5 Minutes Apart Intensity: Moderate OB Assessment/Plan Reason for admission: active labor, rupture of membranes Other Assessment: IUP 37wks Plan: Expectant Management CHLOE LOTT MD Jun 18, 2017 03:47
--- NOTE | 2017-06-18 03:50 | LDN ---
Date/Time of Note Date/Time of Note DATE: 06/18/17 TIME: 03:48 Delivery Summary normal vaginal delivery Weeks of Gestation 37weeks Placenta Delivered: Spontaneously Meconium: none Episiotomy: No Perineal laceration: 0 Laceration repair: labial laceration bilateral 0000ch gut Anesthesia type: Local Sponge & Needle done & correct: Yes All needle counts correct: Yes Any foreign bodies felt in the: No Problems: Delivery Information Sex Sex: male Apgars 1 Minute: 8 5 Minute: 9 Suctioning Nose & mouth suctioned at donita: Yes Delee suction performed: No Umbilical Cord Umbilical cord with: 3 Vessels Cord presentations: no nuchal cord Cord Blood was obtained: Yes Mother & Baby Disposition Disposition Mom & Baby to Maternity; Good: Yes Mom transferred to: Other Baby to NICU: No () CHOLE LOTT MD Jun 18, 2017 03:50
[2017-06-18] MEDS ORDERED: LANOLIN 7 GM TUBE TOP PRN (06:00)
[2017-06-18] MEDS ORDERED: BENZOCAINE 20% 56 ML SPRAY TOP PRN (06:00)
[2017-06-18] MEDS ORDERED: OXYCODONE/ASPIRIN (4.88/325) TAB PO PRN ×2 (06:00)
[2017-06-18] MEDS ORDERED: WITCH HAZEL/GLYCERIN PAD PR PRN (06:00)
[2017-06-18] MEDS ORDERED: ZOLPIDEM 5 MG TAB PO PRN (06:00)
[2017-06-18] MEDS: IBUPROFEN 600 MG TAB PO SCH ×3 (06:18→17:29)
[2017-06-18] MEDS ORDERED: AMPICILLIN 1 GM/NS (PMX) 50 ML IV SCH (06:30)
[2017-06-18] MEDS ORDERED: OXYTOCIN 30 UNITS in LACTATED RINGER'S 497 ML IV SCH (08:30)
[2017-06-18 08:33] LABS: BARBITURATES Negative (NEGATIVE); BENZODIAZEPINES Negative (NEGATIVE); CANNABINOIDS Negative (NEGATIVE); COCAINE Negative (NEGATIVE); OPIATES Negative (NEGATIVE)
[2017-06-18] MEDS: SENNA/DOCUSATE NA (8.6MG/50MG) TAB PO SCH ×2 (09:26→21:25)
[2017-06-19] VITALS: BP 116/82; PULSE 83; RESP 20
[2017-06-19] MEDS: IBUPROFEN 600 MG TAB PO SCH ×4 (00:22→17:47)
[2017-06-19 04:00] VITALS: BP 119/77; PULSE 76; RESP 19
[2017-06-19 08:10] VITALS: BP 107/61; PULSE 79; RESP 17
[2017-06-19] MEDS: SENNA/DOCUSATE NA (8.6MG/50MG) TAB PO SCH ×2 (09:49→21:18)
[2017-06-19 11:41] LABS: BASOPHILS % 0.3 % (0.0-2.0); EOSINOPHILS # 0.1 10^3/ul (0.0-0.5); HEMATOCRIT 27.3 % (37.0-47.0); HEMOGLOBIN 8.1 g/dl (12.0-16.0); LYMPHOCYTES # 2.1 10^3/ul (0.8-2.9); LYMPHOCYTES % 20.9 % (15.0-51.0); MEAN CORPUSCULAR HEMOGLOBIN 24.3 pg (29.0-33.0); MEAN CORPUSCULAR HGB CONC 29.7 g/dl (32.0-37.0); MEAN PLATELET VOLUME 12.9 fl (7.4-10.4); MONOCYTE # 0.6 10^3/ul (0.3-0.9); MONOCYTES % 5.7 % (0.0-11.0); NEUTROPHIL # 7.3 10^3/ul (1.6-7.5); NEUTROPHILS % 71.4 % (39.0-77.0); NUCLEATED RED BLOOD CELLS% 0.3 /100WBC (0.0-0.0); PLATELET COUNT 208 10^3/UL (140-415); RED BLOOD COUNT 3.33 10^6/ul (4.20-5.40); RED CELL DISTRIBUTION WIDTH 14.8 % (11.5-14.5); WHITE BLOOD COUNT 10.2 10^3/ul (4.8-10.8)
[2017-06-19 11:56] LABS: RUBELLA ANTIBODY - IGG 3.49 index
--- NOTE | 2017-06-19 15:52 | PN ---
Date/Time of Note Date/Time of Note DATE: 06/19/17 TIME: 15:45 OB Subjective Subjective Subjective Feels tired. could not sleep enough since last night. Vaginal bleeding minimal. Has been ambulated. breast feeding. denies any other complaint. OB Objective Objective Objective GA: A&O, NAD Abdomen: Soft, non tender, non distended Fundus firm. non tender. Breast: no engorgement, no evidence of mastitis or fissure Extremities: no calf tenderness, no click,no edema Hematology - 72 Hrs Test 06/18/17 02:20 06/19/17 11:10 White Blood Count 9.610^3/ul (4.8-10.8) # 10.210^3/ul (4.8-10.8) Red Blood Count 3.5810^6/ul (4.20-5.40) L 3.3310^6/ul (4.20-5.40) L Hemoglobin 9.0g/dl (12.0-16.0) L 8.1g/dl (12.0-16.0) L Hematocrit 28.7% (37.0-47.0) L 27.3% (37.0-47.0) L Mean Corpuscular Volume 80.2fl (82.0-101.0) L 82.0fl (82.0-101.0) Mean Corpuscular Hemoglobin 25.1pg (29.0-33.0) L 24.3pg (29.0-33.0) L Mean Corpuscular Hemoglobin Concent 31.4g/dl (32.0-37.0) L 29.7g/dl (32.0-37.0) L Red Cell Distribution Width 14.5% (11.5-14.5) 14.8% (11.5-14.5) H Platelet Count 33216^3/UL (140-415) 86312^3/UL (140-415) Mean Platelet Volume 12.5fl (7.4-10.4) H 12.9fl (7.4-10.4) H Neutrophils % 61.6% (39.0-77.0) 71.4% (39.0-77.0) Lymphocytes % 30.3% (15.0-51.0) 20.9% (15.0-51.0) Monocytes % 6.7% (0.0-11.0) 5.7% (0.0-11.0) Eosinophils % 0.6% (0.0-7.0) 1.0% (0.0-7.0) Basophils % 0.2% (0.0-2.0) 0.3% (0.0-2.0) Nucleated Red Blood Cells % 0.4/100WBC (0.0-0.0) H 0.3/100WBC (0.0-0.0) H Neutrophils # 5.910^3/ul (1.6-7.5) 7.310^3/ul (1.6-7.5) Lymphocytes # 2.910^3/ul (0.8-2.9) 2.110^3/ul (0.8-2.9) Monocytes # 0.610^3/ul (0.3-0.9) 0.610^3/ul (0.3-0.9) Eosinophils # 0.110^3/ul (0.0-0.5) 0.110^3/ul (0.0-0.5) Basophils # 0.010^3/ul (0.0-0.1) 0.010^3/ul (0.0-0.1) Nucleated Red Blood Cells # 0.010^3/ul (0.0-0.0) 0.010^3/ul (0.0-0.0) OB Assessment/Plan Other Assessment: s/p PPD#1 Anemia,preexisting anemia as well as post Asymptomatic. Other plan: iron BID Colace BID Continue post care Possible Dc home tomorrow ANÍBAL REINA MD Jun 19, 2017 15:51
[2017-06-19 16:10] VITALS: BP 114/76; PULSE 81; RESP 17
[2017-06-19 19:35] VITALS: BP 108/73; PULSE 75; RESP 20
[2017-06-19] MEDS: POLYSACCHARIDE IRON COMPLEX CAP PO SCH (21:18)
[2017-06-19] MEDS: DOCUSATE SODIUM 100 MG CAP PO SCH (21:18)
[2017-06-20 04:30] VITALS: BP 104/62; PULSE 74; RESP 20
[2017-06-20] MEDS: IBUPROFEN 600 MG TAB PO SCH ×3 (05:50→11:38)
[2017-06-20 07:30] VITALS: BP 109/74; PULSE 72; RESP 19
[2017-06-20] MEDS ORDERED: DIPHTH/TET/ACEL PERTUSS (ADULT) 0.5 ML VIAL IM* ONE (09:00)
[2017-06-20] MEDS: SENNA/DOCUSATE NA (8.6MG/50MG) TAB PO SCH (10:22)
[2017-06-20] MEDS: POLYSACCHARIDE IRON COMPLEX CAP PO SCH (10:22)
[2017-06-20] MEDS: DOCUSATE SODIUM 100 MG CAP PO SCH (10:22)
--- NOTE | 2017-06-20 10:29 | DS ---
Date/Time of Note Date/Time of Note DATE: 06/20/17 TIME: 10:21 Obstetrical Discharge Record Final Diagnosis Final Diagnosis: Term delivered Vaginal Delivery Obstetrical Delivery: Spontaneous Other Delivery information Post delivery day 2 Doing Well Afebrile Ambulatory Chest Clear Breasts are soft , Nipples are intact Abdomen is soft Fundus is firm Moderate amount of lochia No calf tenderness No ankle edema Laboratory Tests Test 06/19/17 11:10 White Blood Count 10.210^3/ul Red Blood Count 3.3310^6/ul Hemoglobin 8.1g/dl Hematocrit 27.3% Mean Corpuscular Volume 82.0fl Mean Corpuscular Hemoglobin 24.3pg Mean Corpuscular Hemoglobin Concent 29.7g/dl Red Cell Distribution Width 14.8% Platelet Count 91139^3/UL Mean Platelet Volume 12.9fl Neutrophils % 71.4% Lymphocytes % 20.9% Monocytes % 5.7% Eosinophils % 1.0% Basophils % 0.3% Nucleated Red Blood Cells % 0.3/100WBC Neutrophils # 7.310^3/ul Lymphocytes # 2.110^3/ul Monocytes # 0.610^3/ul Eosinophils # 0.110^3/ul Basophils # 0.010^3/ul Nucleated Red Blood Cells # 0.010^3/ul Current Medications Medications (Trade) Dose Ordered Sig/Marino Route PRN Reason Start Time Stop Time Status Last Admin Dose Admin Lactated Ringer's 1,000 ml @ 125 mls/hr Q8H IV 06/18/17 02:18 06/18/17 05:37 DC 06/18/17 02:40 Ampicillin 100 ml @ 100 mls/hr ONCE ONCE IV 06/18/17 02:30 06/18/17 03:29 DC 06/18/17 02:44 Ampicillin (Ampicillin 1 Gm/ NS (Pmx)) 50 ml @ 100 mls/hr Q4H IV 06/18/17 06:30 06/18/17 07:28 DC Butorphanol Tartrate (Stadol) 1 mg Q2H PRN IV PAIN 06/18/17 02:30 06/18/17 05:37 DC Butorphanol Tartrate (Stadol) 2 mg Q2H PRN IV PAIN 06/18/17 02:30 06/18/17 05:38 DC Lidocaine 30 ml 30 ml ONCE PRN INJ EPISIOTOMY/TEARING 06/18/17 02:30 06/18/17 05:38 DC 06/18/17 03:09 Oxytocin/Lactated Ringer's 500 ml @ 125 mls/hr ONCE -MAY REPEAT X1 IV 06/18/17 02:30 06/18/17 05:38 DC Oxytocin/Lactated Ringer's 500 ml @ 125 mls/hr ONCE IV 06/18/17 02:30 06/18/17 05:38 DC 06/18/17 03:41 Ibuprofen (Motrin) 600 mg ONCE PRN PO Mild Pain (Pain Score 1-3) 06/18/17 02:30 06/18/17 05:38 DC Acetaminophen/ Hydrocodone Bitart 2 tab 2 tab ONCE PRN PO Moderate to Severe Pain (4-10) 06/18/17 02:30 06/18/17 05:38 DC Lactated Ringer's 1,000 ml @ 2,000 mls/hr Q30M PRN IV PRE-EPIDURAL BOLUS 06/18/17 02:30 06/18/17 05:38 DC Oxytocin/Lactated Ringer's 500 ml @ 0 mls/hr ONCE PRN IV For Hemorrhage Management 06/18/17 02:30 06/18/17 05:38 DC Methylergonovine Maleate (Methergine) 0.2 mg ONCE PRN IM VAGINAL BLEEDING 06/18/17 02:30 06/18/17 05:38 DC Carboprost Tromethamine (Hemabate) 250 mcg ONCE PRN IM VAGINAL BLEEDING 06/18/17 02:30 06/18/17 05:38 DC Misoprostol (Cytotec) 1,000 mcg ONCE PRN [place] VAGINAL BLEEDING 06/18/17 02:30 06/18/17 05:38 DC Ibuprofen (Motrin) 600 mg Q6 PO 06/18/17 06:00 06/20/17 05:50 Oxycodone/Aspirin (Percodan) 1 tab Q3H PRN PO PAIN LEVEL 1-5 06/18/17 06:00 Oxycodone/Aspirin (Percodan) 2 tab Q3H PRN PO PAIN LEVEL 6-10 06/18/17 06:00 Zolpidem Tartrate (Ambien) 5 mg QHS PRN PO INSOMNIA 06/18/17 06:00 Senna/Docusate Sodium (Senokot-S) 1 tab BID PO 06/18/17 09:00 06/19/17 21:18 Witch Fidelia/ Glycerin (Tucks Pads) 1 pad BEDSIDE MEDICATION PRN [place] HEMORRHOID/EPISIOTMY PAIN 06/18/17 06:00 06/18/17 06:17 Benzocaine (Dermoplast [place]) 1 spray BEDSIDE MEDICATION PRN TOP HEMORRHOID/EPISIOTMY PAIN 06/18/17 06:00 06/18/17 06:17 Lanolin ([id number]-[id number]-Cfxnka) 1 applic BEDSIDE MEDICATION PRN TOP BEDSIDE FOR ISABEL TO NIPPLES 06/18/17 06:00 06/18/17 06:17 Diphtheria/ Tetanus/Acell Pertussis 0.5 ml 0.5 ml ONCE ONCE IM* 06/20/17 09:00 06/20/17 09:01 DC Oxytocin/Lactated Ringer's 500 ml @ 0 mls/hr ONCE PRN IV For Hemorrhage Management 06/18/17 06:00 06/18/17 08:32 Methylergonovine Maleate (Methergine) 0.2 mg ONCE PRN IM VAGINAL BLEEDING 06/18/17 06:00 Carboprost Tromethamine (Hemabate) 250 mcg ONCE PRN IM VAGINAL BLEEDING 06/18/17 06:00 Misoprostol 1000 mcg 1,000 mcg ONCE PRN [place] VAGINAL BLEEDING 06/18/17 06:00 Oxytocin 30 units/ Lactated Ringer's 500 ml @ 0 mls/hr Q0M IV 06/18/17 08:30 06/18/17 08:40 DC Oxytocin/Lactated Ringer's 500 ml @ 125 mls/hr Q4H IV 06/18/17 09:00 06/18/17 17:31 DC Polysaccharide Iron Complex (Niferex-150) 1 cap BID PO 06/19/17 21:00 06/19/17 21:18 Docusate Sodium (Colace) 100 mg BID PO 06/19/17 21:00 06/19/17 21:18 Section Primary Indication The is under light therapy due to elevated bilirubin. Mother will be discharged today however she might stay longer if the baby cannot be sent home Complications Complications: less than 7 at 5 mins, Low weight 1500-2500gms Condition on Discharge Physical Assessment Voiding: Yes Bowel Movement: Yes Breast: Soft, non-tender Fundus: Firm Patient Condition: Good JESUS AVILA MD Jun 20, 2017 10:29 JESUS AVILA MD Jun 20, 2017 10:29
== END 2017-06-20 14:40 | disposition home or self-care (01) | DRG 775 ==
LOC: L-D 02:01 → OBT 02:01 → L-D 02:07 → PP1 05:05
PROVIDERS: ADMIT Obstetrics & Gynecology; ATTEND Obstetrics & Gynecology
PROC: 10E0XZZ Delivery of Products of Conception, External Approach (ICD-10-PCS; principal; 2017-06-18)
PROC: 0UQMXZZ Repair Vulva, External Approach (ICD-10-PCS; 2017-06-18)
PROC: 3E0P3VZ Introduction of Hormone into Female Reproductive, Percutaneous Approach (ICD-10-PCS; 2017-06-18)
DX: O70.0 First degree perineal laceration during delivery (principal); O99.02 Anemia complicating childbirth; Z3A.37 37 weeks gestation of pregnancy; Z37.0 Single live birth
CPT/HCPCS: 80307; 85025; 85610; 85730; 86592; 86703; 86762; 86900; 86901; 87340; 90715; G0463; J0290; J0595; J2590; J7120

== ENCOUNTER 2017-07-27 15:37 | Emergency (ER) | payer OTHER ==
[~2017-07-27] VITALS: Ht 162.6 cm; Wt 65.0 kg
[2017-07-27 15:40] VITALS: Ht 162.6 cm; Wt 65.0 kg
[2017-07-27 16:24] LABS: URINE BLOOD (Dip) POC Trace-intact (NEGATIVE)
[2017-07-27] MEDS ORDERED: NITR-58 PO (17:45)
[2017-07-27] MEDS ORDERED: METR70GE15 VAG (17:45)
--- NOTE | 2017-07-27 18:07 | ERD ---
ER Documentation Chief Complaint Chief Complaint pt bib family with c/o painful urination , 5wks post vag delivery HPI Otherwise healthy 27-year-old female 2 months status post uncomplicated vaginal delivery presents with the chief complaints of lower pelvic pain and hematuria and dysuria. Patient has never had symptoms like this in the past. Describes white discharge. Mild pruritus. No foul odor. Denies fever, chills , abdominal pain, nausea, vomiting, diarrhea, constipation, shortness of breath , chest pain, neck stiffness. Patient has no other complaints and describes no other associated manifestations. ROS All systems reviewed and are negative except as per history of present illness. Medications Home Meds Active Scripts Nitrofurantoin Monohyd Macrocr* (Macrobid*) 100 Mg Capsr, 100 MG PO BID for 7 Days, CAP Prov:VILMA YI PA-C 07/27/17 Metronidazole* (Metrogel* Vaginal) 0.75% -70 Gram Gel.w.appl, 1 APPFUL VAG BID, #1 TUB Prov:VILMA YI PA-C 07/27/17 Reported Medications Multivit/Min/Fol Ac/Iron/Pren* ( S*) 1 Tab Tab, 1 TAB PO DAILY, TAB 03/30/17 Allergies Allergies: Coded Allergies: No Known Allergy (Unverified , 07/27/17) PMhx/Soc Medical and Surgical Hx: pt denies Medical Hx, pt denies Surgical Hx History of Surgery: No Anesthesia Reaction: No Hx Neurological Disorder: No Hx Respiratory Disorders: No Hx Cardiac Disorders: No Hx Psychiatric Problems: No Hx Miscellaneous Medical Probl: Yes () Hx Alcohol Use: No Hx Substance Use: No Hx Tobacco Use: No Physical Exam Vitals Vital Signs Date Time Temp Pulse Resp B/P Pulse Ox O2 Delivery O2 Flow Rate FiO2 07/27/17 15:40 97.9 87 16 118/64 98 Physical Exam Const: Well-appearing 27-year-old female no acute distress. Repro: Minimal white discharge in the vaginal grover. No rash. No other abnormalities. No adnexal mass. No cervical motion tenderness. Eyes: Normal Conjunctiva. PERRLA, EOMI, no nystagmus ENT: Normal External Ears, Nose and Mouth. Neck: Full range of motion..~ No meningismus. Resp: Clear to auscultation bilaterally Cardio: Regular rate and rhythm, no murmurs Abd: Mild suprapubic tenderness. Soft, non tender, non distended. Normal bowel sounds Skin: No petechiae or rashes Back: No midline or flank tenderness Ext: No cyanosis, or edema Neur: Awake and alert Psych: Normal Mood and Affect Results 24 hrs Laboratory Tests Test 07/27/17 16:24 Bedside Urine pH (LAB) 6.0 Bedside Urine Protein (LAB) Negative Bedside Urine Glucose (UA) Negative Bedside Urine Ketones (LAB) Negative Bedside Urine Blood Trace-intact Bedside Urine Nitrite (LAB) Negative Bedside Urine Leukocyte Esterase (L Trace Procedures/MDM 27-year-old female presents with chief complaint of dysuria, hematuria, lower pelvic pain. test negative. No tenderness. Mild suprapubic tenderness. Minimal white vaginal discharge on examination. Describes mild pruritus. Most likely diagnosis is trichomonas versus bacterial vaginitis versus hemorrhagic cystitis. I will suspicion for pyelonephritis, PID, ovarian torsion, appendicitis, or other acute abdomen. Patient will be treated with patient is breast-feeding will be treated with MetroGel 7 days, and Macrobid p.o. I have spoke with the patient regarding their condition and future management. They have verbally responded that they understand their status and treatment plan. The patients vitals are stable, and their current condition is appropriate for discharge. The patient will be given discharge instructions with return precautions. Departure Diagnosis: Primary Impression: Vaginitis Chronicity: acute Qualified Code: N76.0 - Acute vaginitis Additional Impression: UTI (urinary tract infection) Urinary tract infection type: acute cystitis Hematuria presence: with hematuria Qualified Code: N30.01 - Acute cystitis with hematuria Condition: Stable Patient Instructions: Understanding Urinary Tract Infections (UTIs) Referrals: [facility] (PCP) Additional Instructions: Follow up with your PCP within the next 1-3 days for a more thorough evaluation and a possible referral to a specialist. Return the the emergency department immediately if symptoms worsen or change. If you have any questions regarding medications, ask your pharmacist or us before you leave. If any adverse reactions occur while taking your medications, discontinue the treatment and return to the emergency department immediately. Take your medications as directed, and complete the entire course of treatment. VILMA YI PA-C Jul 27, 2017 18:06
== END 2017-07-27 18:06 | disposition home or self-care (01) ==
LOC: FTE 15:37
DX: N76.0 Acute vaginitis (principal); N30.01 Acute cystitis with hematuria
CPT/HCPCS: 81003; 87591; Z7502; 99284

== ENCOUNTER 2017-10-15 20:34 | Emergency (ER) | END 2017-10-16 04:27 | disposition home or self-care (01) ==

== ENCOUNTER 2017-11-19 19:34 | Emergency (ER) | END 2017-11-19 20:02 | disposition home or self-care (01) ==

== ENCOUNTER 2018-02-25 21:21 | Emergency (ER) | END 2018-02-26 02:24 | disposition home or self-care (01) ==